=== PATIENT | male | born 1965 | race Caucasian/White ===

== ENCOUNTER 2024-08-29 12:44 | Inpatient (IN) | payer MEDICAID, SELFPAY ==
[2024-08-29] VITALS (12 sets, daily range): BP systolic 154–197; BP diastolic 69–112; PULSE 54–75; RESP 11–20; TEMP 36.6–36.9; O2SAT 92–99; BMI 16.6; BMI 16.9; BMI 16.0
--- NOTE | 2024-08-29 12:47 | [facility].EDGENADL ---
Discharge Plan Disposition Patient Disposition: Admitted Condition: Fair Clinical Impressions Clinical Impression: Abdominal pain, acute, epigastric, Elevated lipase Leukocytosis Qualifiers: Leukocytosis type: lymphocytosis Qualified Code(s): D72.820 - Lymphocytosis (symptomatic) Discharge ED Provider: Mario Cody General Adult HPI <HARESH Katz - Last Filed: 08/29/24 18:20> General Chief complaint: Abdominal Pain Stated complaint: ABD Pain Time Seen by Provider: 08/29/24 12:47 History of Present Illness HPI narrative: Patient presents for evaluation of acute abdominal pain. Patient reports that he has had acute abdominal pain for 24 hours. He has had nausea and vomiting but no diarrhea. Patient also gives a history of being diagnosed with stomach cancer approximately a year and a half ago but has not had it fully worked up or had treatment. Patient is homeless. Patient states that he occasionally uses heroin to control his abdominal pain. He denies any fever chills hemoptysis hematochezia melena hematemesis hematuria. He does not drink alcohol denies any other illicit or street drug use. Related Data Previous Rx's ?Medication ?Instructions ?Recorded linaclotide 145 mcg capsule 145 mcg PO DAILY #14 caps 09/02/24 (Linzess) lisinopril 5 mg tablet 5 mg PO DAILY 30 days #30 tabs 09/02/24 oxycodone-acetaminophen 5 mg-325 1 tab PO Q6H PRN pain 3 days #12 09/02/24 mg tablet (Percocet) tabs pantoprazole 40 mg tablet,delayed 40 mg PO DAILY #30 tabs 09/02/24 release (Protonix) polyethylene glycol 3350 17 gram 17 g PO DAILY 30 days #30 ea 09/02/24 oral powder packet (HealthyLax) sucralfate 1 gram tablet (Carafate) 1 g PO BID #30 tabs 09/02/24 Allergies Allergy/AdvReac Type Severity Reaction Status Date / Time buspirone (From BuSpar) Allergy Rash Verified 08/29/24 13:14 hydrocodone Allergy Vomiting Verified 08/29/24 13:14 PFSH <HARESH Katz - Last Filed: 08/29/24 18:20> PFS Disclaimer: The information contained in this section may have been updated after the patient was seen, as this information can be updated by other users. Family History Other No significant family history Social History (Updated 09/02/24 @ 11:48 by Crystal Hughes CRNA) Smoking Status: Never smoker alcohol intake: never substance use type: unknown current occupational status: unemployed Travel in the last 8 weeks: None <HARESH Katz - Last Filed: 08/29/24 18:20> ROS Obtained: Yes Systems reviewed as appropriate & no additional complaints except as documented Physical Exam <HARESH Katz - Last Filed: 08/29/24 18:20> General General appearance: alert and in no apparent distress Respiratory Respiratory exam: Present normal lung sounds bilaterally Cardiovascular Cardiovascular exam: Present regular rate Neurological Exam Neurological exam: Present alert, oriented X3 and CN II-XII intact Medical Decision Making <HARESH Katz - Last Filed: 08/29/24 18:20> Medical Records Medical records reviewed: Yes I reviewed the patient's medical records. Screening: Per USPSTF and CDC recommendations, given the prevalence of disease in our region, it is our hospital?s policy to screen for HIV and viral Hepatitis for all patients aged 18 and over and those with ongoing risk factors. Yves Inquiry Pt receiving controlled substance: No Vital Signs: 08/29/24 13:02 08/29/24 13:03 08/29/24 13:07 Temperature 97.9 F Temperature Source Oral Pulse Rate 72 Pulse Rate [Left Radial] 75 Pulse Rate [Right Radial] 72 Respiratory Rate 16 11 L 20 Blood Pressure 169/108 H Blood Pressure [Right Arm] 197/112 H 169/108 H Blood Pressure Mean 128 Blood Pressure Mean [Right Arm] 140 128 Blood Pressure Source [Right Arm] Automatic Cuff 02 Sat by Pulse Oximetry 99 99 92 L Oxygen Delivery Method Room Air Room Air 08/29/24 14:00 08/29/24 14:33 08/29/24 15:00 Temperature Temperature Source Pulse Rate 57 L 55 L 58 L Pulse Rate [Left Radial] Pulse Rate [Right Radial] Respiratory Rate 12 13 18 Blood Pressure 186/93 H 185/93 H 178/93 H Blood Pressure [Right Arm] Blood Pressure Mean 124 123 121 Blood Pressure Mean [Right Arm] Blood Pressure Source [Right Arm] 02 Sat by Pulse Oximetry 99 99 97 Oxygen Delivery Method 08/29/24 15:30 08/29/24 16:41 Temperature 98.2 F Temperature Source Pulse Rate 58 L 60 Pulse Rate [Left Radial] Pulse Rate [Right Radial] Respiratory Rate 13 20 Blood Pressure 171/100 H 155/78 H Blood Pressure [Right Arm] Blood Pressure Mean 123 Blood Pressure Mean [Right Arm] Blood Pressure Source [Right Arm] 02 Sat by Pulse Oximetry 99 Oxygen Delivery Method Room Air Lab Data Lab results reviewed: Yes I reviewed the patient's lab results. Lab Results 08/29/24 12:27: WBC 30.6 H*, RBC 5.12, Hgb 14.7, Hct 43.5, MCV 85.0, MCH 28.7, MCHC 33.8, RDW 13.8, Plt Count 233, MPV 10.8 H, Neut % (Auto) 28.6 L, Lymph % (Auto) 67.0 H, [place] % (Auto) 3.4, Eos % (Auto) 0.4, Baso % (Auto) 0.3, Neut # (Auto) 8.8 H, Lymph # (Auto) 20.5 H, [place] # (Auto) 1.1 H, Eos # (Auto) 0.1, Baso # (Auto) 0.1, Total Counted 100, Neutrophils % (Manual) 35 L, Lymphocytes % (Manual) 61 H, Monocytes % (Manual) 4, Platelet Estimate Normal, RBC Morphology Normal, PT 10.3, INR 0.91, Sodium 135 L, Potassium 3.9, Chloride 104, Carbon Dioxide 20 L, Anion Gap 14.9, BUN 39 H, Creatinine 1.30 H, Estimated Creat Clear 45, Estimated GFR 56 L, Est GFR ( Amer) 68, Glucose 143 H, Lactate 2.3 H, Calcium 9.2, Magnesium 1.8, Total Bilirubin 1.0, AST 61 H, ALT 43, Alkaline Phosphatase 85, Troponin I 0.01, Total Protein 7.4, Albumin 4.1, Globulin 3.3 H, Albumin/Globulin Ratio 1.2, Lipase 421 H, Procalcitonin 0.179, HCV Ab FAISAL w/Rflx PCR Qn Reactive, HIV Ag/Ab Combo Qual Negative 08/29/24 14:37: SARS-CoV-2 (PCR) Not detected, Influenza A Untype (PCR) Not detected, Influenza Type B (PCR) Not detected 08/29/24 15:25: Urine Color Yellow, Urine Appearance Clear, Urine pH 7.5, Ur Specific [place] 1.015, Urine Protein Negative, Urine Glucose (UA) 2+, Urine Ketones Negative, Urine Blood Negative, Urine Nitrate Negative, Urine Bilirubin Negative, Urine Urobilinogen 1.0, Ur Leukocyte Esterase Negative, Urine RBC None, Urine WBC None, Ur Squamous Epith Cells None, Urine Bacteria None 09/02/24 06:01 09/02/24 06:01 Orders (Tests/Meds): ED MEDICATIONS Discontinued Medications Generic Name Dose Route Start Last Admin Trade Name Freq PRN Reason Stop Dose Admin Acetaminophen 1,000 mg 08/29/24 12:48 08/29/24 13:01 Acetaminophen 1,000mg/100ml Vial IV 08/29/24 12:49 1,000 mg ONCE ONE Administration Lipase/Protease/Amylase 2 each 09/01/24 11:00 09/02/24 16:37 Lipase/Protease/Amylase 1 Each Capsule.Dr PO 10/01/24 10:59 2 each AC AHSAN Administration Belladonna Alkaloids 60 ml 08/29/24 17:46 08/29/24 18:02 Belladonna Alkaloids 60 Ml Ml PO 08/29/24 17:47 60 ml ONCE ONE Administration Belladonna Alkaloids 60 ml 08/30/24 12:54 08/30/24 13:08 Belladonna Alkaloids 60 Ml Ml PO 08/30/24 12:55 60 ml ONCE ONE Administration Calcium Carbonate 500 mg 08/29/24 17:46 08/30/24 10:27 Calcium Carbonate 500mg Chewtab PO 09/28/24 17:45 500 mg QIDP PRN Administration Heartburn Dicyclomine HCl 20 mg 08/29/24 17:00 08/30/24 12:49 Dicyclomine 10mg Capsule PO 09/28/24 16:59 20 mg QID AHSAN Administration Enoxaparin Sodium 30 mg 09/01/24 09:00 09/02/24 09:08 Enoxaparin 30mg/0.3ml Syringe SUBCUT 10/01/24 08:59 Not Given DAILY AHSAN Hydromorphone HCl 1 mg 08/29/24 13:31 08/29/24 13:57 Hydromorphone 2mg/Ml Syringe IV 08/29/24 13:32 1 mg ONCE ONE Administration Hydromorphone HCl 1 mg 08/29/24 15:24 08/29/24 15:29 Hydromorphone 2mg/Ml Syringe IV 08/29/24 15:25 1 mg ONCE ONE Administration Hydromorphone HCl 0.5 mg 08/30/24 03:19 08/30/24 03:21 Hydromorphone 2mg/Ml Syringe IV 08/30/24 03:20 0.5 mg ONCE ONE Administration Hydromorphone HCl 0.5 mg 08/30/24 22:20 08/30/24 22:25 Hydromorphone 2mg/Ml Syringe IV 08/30/24 22:21 0.5 mg ONCE ONE Administration Hydromorphone HCl 0.5 mg 08/31/24 12:54 09/01/24 10:04 Hydromorphone 2mg/Ml Syringe IV 09/30/24 12:53 0.5 mg Q4HP PRN Administration Moderate Pain (4-6) Hydromorphone HCl 1 mg 08/31/24 12:54 09/02/24 18:34 Hydromorphone 2mg/Ml Syringe IV 09/30/24 12:53 1 mg Q4HP PRN Administration Severe Pain (7-10) Sodium Chloride 1,000 mls @ 999 mls/hr 08/29/24 12:48 08/29/24 13:01 Sod Chlor 0.9% 1000ml Bag IV 08/29/24 13:48 999 mls/hr .Q1H1M ONE Administration Sodium Chloride 2,120 mls @ 1,060 mls/hr 08/29/24 14:39 08/29/24 15:17 Sod Chlor 0.9% 1000ml Bag 30 ml/kg infuse over 2 hr (2120 ml) 08/29/24 16:38 1,060 mls/hr IV Administration .Q2H ONE Vancomycin HCl 1,000 mg/ 250 mls @ 125 mls/hr 08/29/24 14:45 08/29/24 15:27 Sodium Chloride IV 08/29/24 16:44 125 mls/hr ONCE ONE Administration Piperacillin Sod/Tazobactam 50 mls @ 100 mls/hr 08/29/24 15:19 08/29/24 15:20 Sod 3.375 gm/ Sodium Chloride IV 08/29/24 15:48 100 mls/hr ONCE ONE Administration Lactated Ringer's 1,000 mls @ 100 mls/hr 08/29/24 16:30 08/29/24 17:44 Lactated Ringer's 1000 Ml Bag IV 08/30/24 02:29 100 mls/hr .Q10H AHSAN Administration Pantoprazole Sodium 80 mg/ 100 mls @ 100 mls/hr 08/29/24 17:46 08/29/24 18:01 Sodium Chloride IV 08/29/24 18:45 100 mls/hr ONCE ONE Administration Piperacillin Sod/Tazobactam 50 mls @ 100 mls/hr 08/31/24 11:00 09/02/24 16:37 Sod 3.375 gm/ Sodium Chloride IV 09/10/24 10:59 100 mls/hr Q6H AHSAN Administration Lactated Ringer's 1,000 mls @ 75 mls/hr 08/31/24 11:30 09/02/24 16:56 Lactated Ringer's 1000 Ml Bag IV 09/30/24 11:29 Not Given .[id number] AHSAN Lactated Ringer's 1,000 mls @ 500 mls/hr 08/31/24 15:33 08/31/24 15:56 Lactated Ringer's 1000 Ml Bag IV 08/31/24 17:32 500 mls/hr .Q2H ONE Administration Magnesium Sulfate 2 gm in 50 mls @ 50 mls/hr 09/02/24 08:00 09/02/24 13:31 Magnesium Sulfate 2gm/50ml Premix IV 09/02/24 09:59 50 mls/hr Q1H AHSAN Administration Iopamidol 70 ml 08/29/24 13:30 08/29/24 13:31 Iopamidol-370 (76%);100ml Bottle IV 08/29/24 13:31 70 ml ONCE ONE Administration Iopamidol 75 ml 08/29/24 16:49 08/29/24 16:50 Iopamidol-370 (76%);100ml Bottle IV 08/29/24 16:50 75 ml ONCE ONE Administration Iopamidol 80 ml 08/31/24 13:21 08/31/24 13:23 Iopamidol-370 (76%);100ml Bottle IV 08/31/24 13:22 80 ml ONCE ONE Administration Lisinopril 5 mg 08/30/24 09:00 09/02/24 08:34 Lisinopril 5mg Tablet PO 09/29/24 08:59 5 mg DAILY AHSAN Administration Magnesium Hydroxide 30 ml 09/02/24 15:25 09/02/24 16:37 Milk Of Magnesia 30ml Udc PO 09/02/24 15:26 30 ml ONCE ONE Administration Miscellaneous 1 each 08/29/24 14:45 08/29/24 15:19 Vancomycin Consult Request NOTAPPLIC 09/28/24 14:44 1 each CONSULT PHARMACY AHSAN Administration Misoprostol 200 mcg 08/31/24 13:00 09/02/24 18:29 Misoprostol 200 Mcg Tablet PO 09/30/24 12:59 200 mcg Q6H AHSAN Administration Morphine Sulfate 2 mg 08/30/24 12:58 08/31/24 11:31 Morphine 2mg/Ml Syringe IV 09/29/24 12:57 2 mg Q4HP PRN Administration Moderate Pain (4-6) Morphine Sulfate 4 mg 08/30/24 12:58 08/31/24 08:24 Morphine 4mg/Ml Syringe IV 09/29/24 12:57 4 mg Q4HP PRN Administration Severe Pain (7-10) Ondansetron HCl 4 mg 08/29/24 12:48 08/29/24 13:01 Ondansetron 4mg/2ml Vial IV 08/29/24 12:49 4 mg ONCE ONE Administration Ondansetron HCl 4 mg 09/01/24 14:22 09/02/24 16:41 Ondansetron 4mg/2ml Vial IV 10/01/24 14:21 4 mg Q6HP PRN Administration Nausea Pantoprazole Sodium 40 mg 08/29/24 21:00 09/02/24 08:33 Pantoprazole 40mg Vial IV 09/28/24 20:59 40 mg BID AHSAN Administration Pantoprazole Sodium 40 mg 08/29/24 21:57 08/29/24 21:59 Pantoprazole 40mg Tablet PO 08/29/24 21:58 40 mg ONCE ONE Administration Polyethylene Glycol 17 gm 08/31/24 11:15 09/02/24 09:09 Polyethylene Glycol 3350 17 Gm Packet PO 09/30/24 11:14 Not Given DAILY AHSAN Potassium Chloride 40 meq 09/02/24 08:00 09/02/24 12:56 Potassium Chloride 20meq Tab PO 09/02/24 12:01 40 meq Q4H AHSAN Administration Promethazine HCl 25 mg 08/29/24 15:24 08/29/24 15:29 Promethazine Hcl 25mg/Ml 1ml Vial IV 08/29/24 15:25 25 mg ONCE ONE Administration Promethazine HCl 25 mg 09/01/24 17:38 09/01/24 17:45 Promethazine Hcl 25mg/Ml 1ml Vial IV 10/01/24 17:37 25 mg Q6HP PRN Administration Nausea And Vomiting Ropinirole HCl 0.5 mg 08/30/24 00:05 09/01/24 20:02 Ropinirole Hcl 0.25 Mg Tablet PO 09/29/24 00:04 0.5 mg HS AHSAN Administration Sodium Chloride 50 ml 08/29/24 13:30 08/29/24 13:31 0.9 % Sodium Chloride 50 Ml Vial IV 08/29/24 13:31 50 ml ONCE ONE Administration Sodium Chloride 10 ml 08/29/24 13:30 08/29/24 13:31 Sodium Chloride 0.9% 10ml Syr (Rad Only) IV 08/29/24 13:31 10 ml ONCE ONE Administration Sodium Chloride 25 ml 08/29/24 15:24 08/29/24 15:30 Sodium Chloride 0.9% 25ml Bag IV 08/29/24 15:25 25 ml ONCE ONE Administration Sodium Chloride 10 ml 08/29/24 16:49 Sodium Chloride 0.9% 10ml Syr (Rad Only) IV 09/28/24 16:48 NEEDED PRN Maintain IV Site Sodium Chloride 10 ml 08/29/24 17:46 08/31/24 20:24 Sodium Chloride 0.9% 10ml Vial IV 09/28/24 17:45 10 ml NEEDED PRN Administration dilute protonix Sodium Chloride 10 ml 08/31/24 11:17 08/31/24 13:23 Sodium Chloride 0.9% 10ml Flush Syringe IV 09/30/24 11:16 10 ml NEEDED PRN Administration Maintain IV Site Sodium Chloride 50 ml 08/31/24 13:21 08/31/24 13:23 0.9 % Sodium Chloride 50 Ml Vial IV 08/31/24 13:22 50 ml ONCE ONE Administration Sodium Chloride 10 ml 08/31/24 13:21 Sodium Chloride 0.9% 10ml Syr (Rad Only) IV 09/30/24 13:20 NEEDED PRN Maintain IV Site Sodium Chloride 25 ml 09/01/24 17:38 09/01/24 17:45 Sodium Chloride 0.9% 25ml Bag IV 10/01/24 17:37 25 ml NEEDED PRN Administration for Use with IV Promethazine Sucralfate 1 gm 08/31/24 11:00 09/02/24 16:37 Sucralfate 1gm Tablet PO 09/30/24 10:59 1 gm ACHS AHSAN Administration ORDERS Category Date Time Status CT abdomen pelvis w con Stat Cat Scan 08/29/24 12:[address] abdomen wo/w con Stat Cat Scan 08/29/24 16:[address] angio chest PE protocol Stat Cat Scan 08/29/24 12:48 Completed Consult Improvement Coordinator [CONS] Routine Cons 08/29/24 13:14 Active US abdomen limited Stat Exams 08/29/24 15:27 Completed CBC w/Auto Diff [Complete Blood Count Auto Diff] Stat Lab 08/29/24 12:27 Completed CMP [Comprehensive Metabolic Panel] Stat Lab 08/29/24 12:27 Completed Complete Blood Count Auto Diff AMLAB Lab 08/30/24 08:05 Completed Comprehensive Metabolic Panel AMLAB Lab 08/30/24 08:05 Completed HIV Combo Routine Lab 08/29/24 12:27 Completed Hepatitis C Ab Qual. W/ RFX Routine Lab 08/29/24 12:27 Completed INR [Prothrombin Time INR] Stat Lab 08/29/24 12:27 Completed Lactic Acid Stat Lab 08/29/24 12:27 Completed Lipase Stat Lab 08/29/24 12:27 Completed Magnesium AMLAB Lab 08/30/24 08:05 Completed Magnesium Stat Lab 08/29/24 12:27 Completed Peripheral Smear Review Stat Lab 08/29/24 12:27 Completed Procalcitonin Stat Lab 08/29/24 12:27 Completed Rapid PCR Covid and Flu A/B Stat Lab 08/29/24 14:37 Completed Trop I [Troponin I] Stat Lab 08/29/24 12:27 Completed Troponin I Q3H Lab 08/29/24 17:10 Completed Troponin I Q3H Lab 08/29/24 19:42 Completed UA [Urinalysis and Microscopic] Stat Lab 08/29/24 15:25 Completed Blood Culture Stat Micro 08/29/24 13:00 Results Tissue Perfus/Sepsis Re-Eval Sepsis Re-Evaluation Performed: Yes Date Performed: 08/29/24 Time Performed: 14:34 HEART Score History (anamnesis): Slightly suspicious ECG: Normal Age: 45-65 years Risk factors: 1-2 risk factors Troponin: </= normal limit HEART Score: 2 Medical Decision Narrative: In summary patient is a 59-year-old male who presents to the emergency department for evaluation of abdominal pain. Patient is hypertensive on arrival with a blood pressure 197/112 heart rate 72 with normal sinus rhythm on the bedside monitor breathing 16 times a minute satting at 99% on room air upon arrival, afebrile at 97.9. Physical exam reveals a much older than stated age appearing 59-year-old gentleman who appears to be cachectic but is in no acute distress. Breath sounds clear and equal bilaterally to the bases without adventitious sounds, patient is tender to palpation in the epigastrium focally but diffusely in his abdomen but his abdomen soft no palpable masses no rebound or guarding no rigidity normal bowel sounds. Patient has skin tenting. Differential diagnosis includes pancreatitis versus gastroenteritis versus ulcer versus neoplasm versus constipation versus obstipation etc. Initial workup will be conducted with hematologic labs blood cultures twelve-lead EKG CT scan PE protocol CT scan abdomen pelvis urinalysis. Initial interventions include crystalloid bolus Toradol Tylenol Zofran. Initial workup reviewed by me and his white count is 30.6 hemoglobin hematocrit are normal platelets are 233 differential shows an absolute neutrophil count of 8.8 and lymphocyte count of 20.5, INR 0.91 CMP significant for sodium 135 CO2 of 20 BUN of 39 creatinine 1.3 GFR 56 glucose 143 lactate 2.3 magnesium 1.8 bilirubin 1 AST of 61 ALT of 43 alk phos 85 initial troponin is less than 0.001 lipase is 421 and procalcitonin is 0.19. My informal interpretation of his CT imaging reveals no acute intra-abdominal or intrathoracic processes however patient has no intra-abdominal fat thus makes it difficult for inflammatory evaluation while I am concerned that his leukocytosis is indicative of lymphoma and over bedside caution we will treat his sepsis initially with broad-spectrum antibiotics. I have given a sepsis bolus and liberal analgesia for the pancreatitis. Upon repeat evaluation patient is still continuing to have pain requiring multiple doses of Dilaudid and antinausea medications. Given this had interactive discussion with hospital medicine regarding patient MEJIA presentation and management and he will be admitted for further evaluation and care. <Mario Cody MD - Last Filed: 09/03/24 06:58> Vital Signs: 08/29/24 13:02 08/29/24 13:03 08/29/24 13:07 Temperature 97.9 F Temperature Source Oral Pulse Rate 72 Pulse Rate [Left Radial] 75 Pulse Rate [Right Radial] 72 Respiratory Rate 16 11 L 20 Blood Pressure 169/108 H Blood Pressure [Right Arm] 197/112 H 169/108 H Blood Pressure Mean 128 Blood Pressure Mean [Right Arm] 140 128 Blood Pressure Source [Right Arm] Automatic Cuff 02 Sat by Pulse Oximetry 99 99 92 L Oxygen Delivery Method Room Air Room Air 08/29/24 14:00 08/29/24 14:33 08/29/24 15:00 Temperature Temperature Source Pulse Rate 57 L 55 L 58 L Pulse Rate [Left Radial] Pulse Rate [Right Radial] Respiratory Rate 12 13 18 Blood Pressure 186/93 H 185/93 H 178/93 H Blood Pressure [Right Arm] Blood Pressure Mean 124 123 121 Blood Pressure Mean [Right Arm] Blood Pressure Source [Right Arm] 02 Sat by Pulse Oximetry 99 99 97 Oxygen Delivery Method 08/29/24 15:30 08/29/24 16:41 Temperature 98.2 F Temperature Source Pulse Rate 58 L 60 Pulse Rate [Left Radial] Pulse Rate [Right Radial] Respiratory Rate 13 20 Blood Pressure 171/100 H 155/78 H Blood Pressure [Right Arm] Blood Pressure Mean 123 Blood Pressure Mean [Right Arm] Blood Pressure Source [Right Arm] 02 Sat by Pulse Oximetry 99 Oxygen Delivery Method Room Air Lab Data Lab Results 08/29/24 12:27: WBC 30.6 H*, RBC 5.12, Hgb 14.7, Hct 43.5, MCV 85.0, MCH 28.7, MCHC 33.8, RDW 13.8, Plt Count 233, MPV 10.8 H, Neut % (Auto) 28.6 L, Lymph % (Auto) 67.0 H, [place] % (Auto) 3.4, Eos % (Auto) 0.4, Baso % (Auto) 0.3, Neut # (Auto) 8.8 H, Lymph # (Auto) 20.5 H, [place] # (Auto) 1.1 H, Eos # (Auto) 0.1, Baso # (Auto) 0.1, Total Counted 100, Neutrophils % (Manual) 35 L, Lymphocytes % (Manual) 61 H, Monocytes % (Manual) 4, Platelet Estimate Normal, RBC Morphology Normal, PT 10.3, INR 0.91, Sodium 135 L, Potassium 3.9, Chloride 104, Carbon Dioxide 20 L, Anion Gap 14.9, BUN 39 H, Creatinine 1.30 H, Estimated Creat Clear 45, Estimated GFR 56 L, Est GFR ( Amer) 68, Glucose 143 H, Lactate 2.3 H, Calcium 9.2, Magnesium 1.8, Total Bilirubin 1.0, AST 61 H, ALT 43, Alkaline Phosphatase 85, Troponin I 0.01, Total Protein 7.4, Albumin 4.1, Globulin 3.3 H, Albumin/Globulin Ratio 1.2, Lipase 421 H, Procalcitonin 0.179, HCV Ab FAISAL w/Rflx PCR Qn Reactive, HIV Ag/Ab Combo Qual Negative 08/29/24 14:37: SARS-CoV-2 (PCR) Not detected, Influenza A Untype (PCR) Not detected, Influenza Type B (PCR) Not detected 08/29/24 15:25: Urine Color Yellow, Urine Appearance Clear, Urine pH 7.5, Ur Specific [place] 1.015, Urine Protein Negative, Urine Glucose (UA) 2+, Urine Ketones Negative, Urine Blood Negative, Urine Nitrate Negative, Urine Bilirubin Negative, Urine Urobilinogen 1.0, Ur Leukocyte Esterase Negative, Urine RBC None, Urine WBC None, Ur Squamous Epith Cells None, Urine Bacteria None Orders (Tests/Meds): ED MEDICATIONS Discontinued Medications Generic Name Dose Route Start Last Admin Trade Name Freq PRN Reason Stop Dose Admin Acetaminophen 1,000 mg 08/29/24 12:48 08/29/24 13:01 Acetaminophen 1,000mg/100ml Vial IV 08/29/24 12:49 1,000 mg ONCE ONE Administration Lipase/Protease/Amylase 2 each 09/01/24 11:00 09/02/24 16:37 Lipase/Protease/Amylase 1 Each Capsule.Dr MATTA 10/01/24 10:59 2 each AC AHSAN Administration Belladonna Alkaloids 60 ml 08/29/24 17:46 08/29/24 18:02 Belladonna Alkaloids 60 Ml Ml PO 08/29/24 17:47 60 ml ONCE ONE Administration Belladonna Alkaloids 60 ml 08/30/24 12:54 08/30/24 13:08 Belladonna Alkaloids 60 Ml Ml PO 08/30/24 12:55 60 ml ONCE ONE Administration Calcium Carbonate 500 mg 08/29/24 17:46 08/30/24 10:27 Calcium Carbonate 500mg Chewtab PO 09/28/24 17:45 500 mg QIDP PRN Administration Heartburn Dicyclomine HCl 20 mg 08/29/24 17:00 08/30/24 12:49 Dicyclomine 10mg Capsule PO 09/28/24 16:59 20 mg QID AHSAN Administration Enoxaparin Sodium 30 mg 09/01/24 09:00 09/02/24 09:08 Enoxaparin 30mg/0.3ml Syringe SUBCUT 10/01/24 08:59 Not Given DAILY AHSAN Hydromorphone HCl 1 mg 08/29/24 13:31 08/29/24 13:57 Hydromorphone 2mg/Ml Syringe IV 08/29/24 13:32 1 mg ONCE ONE Administration Hydromorphone HCl 1 mg 08/29/24 15:24 08/29/24 15:29 Hydromorphone 2mg/Ml Syringe IV 08/29/24 15:25 1 mg ONCE ONE Administration Hydromorphone HCl 0.5 mg 08/30/24 03:19 08/30/24 03:21 Hydromorphone 2mg/Ml Syringe IV 08/30/24 03:20 0.5 mg ONCE ONE Administration Hydromorphone HCl 0.5 mg 08/30/24 22:20 08/30/24 22:25 Hydromorphone 2mg/Ml Syringe IV 08/30/24 22:21 0.5 mg ONCE ONE Administration Hydromorphone HCl 0.5 mg 08/31/24 12:54 09/01/24 10:04 Hydromorphone 2mg/Ml Syringe IV 09/30/24 12:53 0.5 mg Q4HP PRN Administration Moderate Pain (4-6) Hydromorphone HCl 1 mg 08/31/24 12:54 09/02/24 18:34 Hydromorphone 2mg/Ml Syringe IV 09/30/24 12:53 1 mg Q4HP PRN Administration Severe Pain (7-10) Sodium Chloride 1,000 mls @ 999 mls/hr 08/29/24 12:48 08/29/24 13:01 Sod Chlor 0.9% 1000ml Bag IV 08/29/24 13:48 999 mls/hr .Q1H1M ONE Administration Sodium Chloride 2,120 mls @ 1,060 mls/hr 08/29/24 14:39 08/29/24 15:17 Sod Chlor 0.9% 1000ml Bag 30 ml/kg infuse over 2 hr (2120 ml) 08/29/24 16:38 1,060 mls/hr IV Administration .Q2H ONE Vancomycin HCl 1,000 mg/ 250 mls @ 125 mls/hr 08/29/24 14:45 08/29/24 15:27 Sodium Chloride IV 08/29/24 16:44 125 mls/hr ONCE ONE Administration Piperacillin Sod/Tazobactam 50 mls @ 100 mls/hr 08/29/24 15:19 08/29/24 15:20 Sod 3.375 gm/ Sodium Chloride IV 08/29/24 15:48 100 mls/hr ONCE ONE Administration Lactated Ringer's 1,000 mls @ 100 mls/hr 08/29/24 16:30 08/29/24 17:44 Lactated Ringer's 1000 Ml Bag IV 08/30/24 02:29 100 mls/hr .Q10H AHSAN Administration Pantoprazole Sodium 80 mg/ 100 mls @ 100 mls/hr 08/29/24 17:46 08/29/24 18:01 Sodium Chloride IV 08/29/24 18:45 100 mls/hr ONCE ONE Administration Piperacillin Sod/Tazobactam 50 mls @ 100 mls/hr 08/31/24 11:00 09/02/24 16:37 Sod 3.375 gm/ Sodium Chloride IV 09/10/24 10:59 100 mls/hr Q6H AHSAN Administration Lactated Ringer's 1,000 mls @ 75 mls/hr 08/31/24 11:30 09/02/24 16:56 Lactated Ringer's 1000 Ml Bag IV 09/30/24 11:29 Not Given .[id number] AHSAN Lactated Ringer's 1,000 mls @ 500 mls/hr 08/31/24 15:33 08/31/24 15:56 Lactated Ringer's 1000 Ml Bag IV 08/31/24 17:32 500 mls/hr .Q2H ONE Administration Magnesium Sulfate 2 gm in 50 mls @ 50 mls/hr 09/02/24 08:00 09/02/24 13:31 Magnesium Sulfate 2gm/50ml Premix IV 09/02/24 09:59 50 mls/hr Q1H AHSAN Administration Iopamidol 70 ml 08/29/24 13:30 08/29/24 13:31 Iopamidol-370 (76%);100ml Bottle IV 08/29/24 13:31 70 ml ONCE ONE Administration Iopamidol 75 ml 08/29/24 16:49 08/29/24 16:50 Iopamidol-370 (76%);100ml Bottle IV 08/29/24 16:50 75 ml ONCE ONE Administration Iopamidol 80 ml 08/31/24 13:21 08/31/24 13:23 Iopamidol-370 (76%);100ml Bottle IV 08/31/24 13:22 80 ml ONCE ONE Administration Lisinopril 5 mg 08/30/24 09:00 09/02/24 08:34 Lisinopril 5mg Tablet PO 09/29/24 08:59 5 mg DAILY AHSAN Administration Magnesium Hydroxide 30 ml 09/02/24 15:25 09/02/24 16:37 Milk Of Magnesia 30ml Udc PO 09/02/24 15:26 30 ml ONCE ONE Administration Miscellaneous 1 each 08/29/24 14:45 08/29/24 15:19 Vancomycin Consult Request NOTAPPLIC 09/28/24 14:44 1 each CONSULT PHARMACY AHSAN Administration Misoprostol 200 mcg 08/31/24 13:00 09/02/24 18:29 Misoprostol 200 Mcg Tablet PO 09/30/24 12:59 200 mcg Q6H AHSAN Administration Morphine Sulfate 2 mg 08/30/24 12:58 08/31/24 11:31 Morphine 2mg/Ml Syringe IV 09/29/24 12:57 2 mg Q4HP PRN Administration Moderate Pain (4-6) Morphine Sulfate 4 mg 08/30/24 12:58 08/31/24 08:24 Morphine 4mg/Ml Syringe IV 09/29/24 12:57 4 mg Q4HP PRN Administration Severe Pain (7-10) Ondansetron HCl 4 mg 08/29/24 12:48 08/29/24 13:01 Ondansetron 4mg/2ml Vial IV 08/29/24 12:49 4 mg ONCE ONE Administration Ondansetron HCl 4 mg 09/01/24 14:22 09/02/24 16:41 Ondansetron 4mg/2ml Vial IV 10/01/24 14:21 4 mg Q6HP PRN Administration Nausea Pantoprazole Sodium 40 mg 08/29/24 21:00 09/02/24 08:33 Pantoprazole 40mg Vial IV 09/28/24 20:59 40 mg BID AHSAN Administration Pantoprazole Sodium 40 mg 08/29/24 21:57 08/29/24 21:59 Pantoprazole 40mg Tablet PO 08/29/24 21:58 40 mg ONCE ONE Administration Polyethylene Glycol 17 gm 08/31/24 11:15 09/02/24 09:09 Polyethylene Glycol 3350 17 Gm Packet PO 09/30/24 11:14 Not Given DAILY AHSAN Potassium Chloride 40 meq 09/02/24 08:00 09/02/24 12:56 Potassium Chloride 20meq Tab PO 09/02/24 12:01 40 meq Q4H AHSAN Administration Promethazine HCl 25 mg 08/29/24 15:24 08/29/24 15:29 Promethazine Hcl 25mg/Ml 1ml Vial IV 08/29/24 15:25 25 mg ONCE ONE Administration Promethazine HCl 25 mg 09/01/24 17:38 09/01/24 17:45 Promethazine Hcl 25mg/Ml 1ml Vial IV 10/01/24 17:37 25 mg Q6HP PRN Administration Nausea And Vomiting Ropinirole HCl 0.5 mg 08/30/24 00:05 09/01/24 20:02 Ropinirole Hcl 0.25 Mg Tablet PO 09/29/24 00:04 0.5 mg HS AHSAN Administration Sodium Chloride 50 ml 08/29/24 13:30 08/29/24 13:31 0.9 % Sodium Chloride 50 Ml Vial IV 08/29/24 13:31 50 ml ONCE ONE Administration Sodium Chloride 10 ml 08/29/24 13:30 08/29/24 13:31 Sodium Chloride 0.9% 10ml Syr (Rad Only) IV 08/29/24 13:31 10 ml ONCE ONE Administration Sodium Chloride 25 ml 08/29/24 15:24 08/29/24 15:30 Sodium Chloride 0.9% 25ml Bag IV 08/29/24 15:25 25 ml ONCE ONE Administration Sodium Chloride 10 ml 08/29/24 16:49 Sodium Chloride 0.9% 10ml Syr (Rad Only) IV 09/28/24 16:48 NEEDED PRN Maintain IV Site Sodium Chloride 10 ml 08/29/24 17:46 08/31/24 20:24 Sodium Chloride 0.9% 10ml Vial IV 09/28/24 17:45 10 ml NEEDED PRN Administration dilute protonix Sodium Chloride 10 ml 08/31/24 11:17 08/31/24 13:23 Sodium Chloride 0.9% 10ml Flush Syringe IV 09/30/24 11:16 10 ml NEEDED PRN Administration Maintain IV Site Sodium Chloride 50 ml 08/31/24 13:21 08/31/24 13:23 0.9 % Sodium Chloride 50 Ml Vial IV 08/31/24 13:22 50 ml ONCE ONE Administration Sodium Chloride 10 ml 08/31/24 13:21 Sodium Chloride 0.9% 10ml Syr (Rad Only) IV 09/30/24 13:20 NEEDED PRN Maintain IV Site Sodium Chloride 25 ml 09/01/24 17:38 09/01/24 17:45 Sodium Chloride 0.9% 25ml Bag IV 10/01/24 17:37 25 ml NEEDED PRN Administration for Use with IV Promethazine Sucralfate 1 gm 08/31/24 11:00 09/02/24 16:37 Sucralfate 1gm Tablet PO 09/30/24 10:59 1 gm ACHS AHSAN Administration ORDERS Category Date Time Status CT abdomen pelvis w con Stat Cat Scan 08/29/24 12:[address] abdomen wo/w con Stat Cat Scan 08/29/24 16:[address] angio chest PE protocol Stat Cat Scan 08/29/24 12:48 Completed Consult Improvement Coordinator [CONS] Routine Cons 08/29/24 13:14 Active US abdomen limited Stat Exams 08/29/24 15:27 Completed CBC w/Auto Diff [Complete Blood Count Auto Diff] Stat Lab 08/29/24 12:27 Completed CMP [Comprehensive Metabolic Panel] Stat Lab 08/29/24 12:27 Completed Complete Blood Count Auto Diff AMLAB Lab 08/30/24 08:05 Completed Comprehensive Metabolic Panel AMLAB Lab 08/30/24 08:05 Completed HIV Combo Routine Lab 08/29/24 12:27 Completed Hepatitis C Ab Qual. W/ RFX Routine Lab 08/29/24 12:27 Completed INR [Prothrombin Time INR] Stat Lab 08/29/24 12:27 Completed Lactic Acid Stat Lab 08/29/24 12:27 Completed Lipase Stat Lab 08/29/24 12:27 Completed Magnesium AMLAB Lab 08/30/24 08:05 Completed Magnesium Stat Lab 08/29/24 12:27 Completed Peripheral Smear Review Stat Lab 08/29/24 12:27 Completed Procalcitonin Stat Lab 08/29/24 12:27 Completed Rapid PCR Covid and Flu A/B Stat Lab 08/29/24 14:37 Completed Trop I [Troponin I] Stat Lab 08/29/24 12:27 Completed Troponin I Q3H Lab 08/29/24 17:10 Completed Troponin I Q3H Lab 08/29/24 19:42 Completed UA [Urinalysis and Microscopic] Stat Lab 08/29/24 15:25 Completed Blood Culture Stat Micro 08/29/24 13:00 Results ECG Data Tracing #1: I reviewed this ECG and interpreted as documented below: (Sinus rhythm 70 bpm with SD 119, QRS 71, QTc 438. Right atrial enlargement, normal axis and no acute ischemic change) HEART Score HEART Score: 2 Medical Decision Narrative: In summary patient is a 59-year-old male who presents to the emergency department for evaluation of abdominal pain. Patient is hypertensive on arrival with a blood pressure 197/112 heart rate 72 with normal sinus rhythm on the bedside monitor breathing 16 times a minute satting at 99% on room air upon arrival, afebrile at 97.9. Physical exam reveals a much older than stated age appearing 59-year-old gentleman who appears to be cachectic but is in no acute distress. Breath sounds clear and equal bilaterally to the bases without adventitious sounds, patient is tender to palpation in the epigastrium focally but diffusely in his abdomen but his abdomen soft no palpable masses no rebound or guarding no rigidity normal bowel sounds. Patient has skin tenting. Differential diagnosis includes pancreatitis versus gastroenteritis versus ulcer versus neoplasm versus constipation versus obstipation etc. Initial workup will be conducted with hematologic labs blood cultures twelve-lead EKG CT scan PE protocol CT scan abdomen pelvis urinalysis. Initial interventions include crystalloid bolus Toradol Tylenol Zofran. Initial workup reviewed by me and his white count is 30.6 hemoglobin hematocrit are normal platelets are 233 differential shows an absolute neutrophil count of 8.8 and lymphocyte count of 20.5, INR 0.91 CMP significant for sodium 135 CO2 of 20 BUN of 39 creatinine 1.3 GFR 56 glucose 143 lactate 2.3 magnesium 1.8 bilirubin 1 AST of 61 ALT of 43 alk phos 85 initial troponin is less than 0.001 lipase is 421 and procalcitonin is 0.19. My informal interpretation of his CT imaging reveals no acute intra-abdominal or intrathoracic processes however patient has no intra-abdominal fat thus makes it difficult for inflammatory evaluation while I am concerned that his leukocytosis is indicative of lymphoma and over bedside caution we will treat his sepsis initially with broad-spectrum antibiotics. I have given a sepsis bolus and liberal analgesia for the pancreatitis. Upon repeat evaluation patient is still continuing to have pain requiring multiple doses of Dilaudid and antinausea medications. Given this had interactive discussion with hospital medicine regarding patient MEJIA presentation and management and he will be admitted for further evaluation and care. I was consulted by the BETTY, and we discussed the complexity of the problems being addressed. I approved the treatment and management plan for this patient's care in the Emergency Department, thus performing a substantive portion of the medical decision making. Mario Cody MD Critical Care <HARESH Katz - Last Filed: 08/29/24 18:20> Critical Care Time Critical Care Time: Yes Attestation: On 08/29/24, the high probability of a clinically significant, sudden or life threatening deterioration of the following system(s) required my full and direct attention, intervention and personal management. The time I documented below is in addition to time spent performing reported procedures but includes the following listed in this critical care notation. Total Time Total Critical Care Time: 35
--- NOTE | 2024-08-29 12:48 | ECG_ITS ---
APPROVED REPORT Exam: Resting ECG HR:70 bpm ECG Measurements Heart Rate 70 AXES IA 119 P 87 QRSd 71 QRS 80 QT 418 T 69 QTc 438 Conclusion SINUS RHYTHM WITH SINUS ARRHYTHMIA WITH SHORT IA INTERVAL RIGHT ATRIAL ENLARGEMENT [0.3mV P-WAVE] POSSIBLE LEFT ATRIAL ENLARGEMENT [-0.1mV P-WAVE IN V1/V2] ABNORMAL ECG INTERPRETATION BASED ON A DEFAULT AGE OF 40 YEARS Electronically signed by : JAELYN BARNETT, 09/02/2024 22:26:05
--- NOTE | 2024-08-29 12:48 | CT_ITS ---
FINAL REPORT TECHNIQUE: After the administration of oral and intravenous contrast, axial images were obtained through the abdomen and pelvis by computed tomography. The study was performed with techniques to keep radiation dose as low as reasonably achievable, (ALARA). Individual dose reduction techniques using automated exposure control or adjustment of mA and/or kV according to the patient's size were employed. CLINICAL HISTORY: Acute epigastric abd pain, H/O ABD cancer FINDINGS: Abdomen: A relative absence of intra-abdominal fat limits diagnostic sensitivity. There is moderate fatty infiltration of the liver. The gallbladder is contracted. There is an enhancing wall to the contracted gallbladder.. The spleen, pancreas and adrenals appear unremarkable. There is a complex abnormality in the periphery of the right kidney measuring 12 mm. This is best seen on image 36 of series 7 and is indeterminate. The left kidney is unremarkable. The aorta is normal in caliber. There is no free fluid or adenopathy. Pelvis: The appendix is not identified. The urinary bladder is normal in size and configuration. There is no adenopathy. There is a trace amount of free fluid. IMPRESSION: A lack of intra-abdominal fat decreases sensitivity. Moderate fatty liver. Indeterminate, complex abnormality in the periphery of the right kidney. Recommend pre and postcontrast CT abdomen and pelvis to better characterize. Reviewed, Interpreted and Dictated by Jack Melendez MD Transcribed by Ramona Sheridan Authenticated and [facility]
--- NOTE | 2024-08-29 12:48 | CT_ITS ---
FINAL REPORT TECHNIQUE: The patient was injected with IV contrast. Axial images were obtained through the chest in a PE protocol. 3-D reconstruction images were also performed. Individualized dose reduction techniques using automated exposure control or adjustment of the MA and/or KV according to patient's size were employed. CLINICAL HISTORY: Acute epigastric abd pain, H/O ABD cancer FINDINGS: Mediastinal vasculature is adequately opacified. No pulmonary artery filling defects are identified to suggest PE. There is no aortic dissection. There is no axillary adenopathy. There is no hilar or mediastinal adenopathy. The heart size is normal. There is no pericardial or pleural effusion. No suspicious infiltrate or nodule is identified. There is moderate centrilobular emphysema. IMPRESSION: No pulmonary embolus or dissection. Moderate centrilobular emphysema. Reviewed, Interpreted and Dictated by Jack Melendez MD Transcribed by Ramona Sheridan Authenticated and [facility]
[2024-08-29] MEDS: ONDANSETRON 4MG/2ML VIAL 4 MG IV (13:01)
[2024-08-29] MEDS: 0.9 % SODIUM CHLORIDE 1000ML 1,000 ML 999 ML IV (13:01)
[2024-08-29] MEDS: ACETAMINOPHEN 1,000MG/100ML VIAL 1000 MG IV (13:01)
[2024-08-29 13:13] LABS: Basophils # 0.1 K/mm3 (0-0.2); Basophils % 0.3 % (0.1-2.0); Chloride 104 mmol/L (98-107); Eosinophils # 0.1 Kmm3 (0.0-0.4); Eosinophils % 0.4 % (0.1-12.0); Hematocrit 43.5 % (42.0-52.0); Hemoglobin 14.7 g/dL (14.1-18.0); Lymphocytes # 20.5 K/mm3 (0.7-4.5); Mean Corpuscular HGB Conc 33.8 g/dL (31.8-35.4); Mean Corpuscular Hemoglobin 28.7 pg (27.0-31.2); Mean Platelet Volume 10.8 fl (7.4-10.4); Monocytes # 1.1 K/mm3 (0.1-1.0); Monocytes % 3.4 % (1.7-9.3); Neutrophils # 8.8 K/mm3 (1.8-7.8); Neutrophils % 28.6 % (37.0-80.0); Nucleated Red Blood Cells # 0 10^3/uL; Nucleated Red Blood Cells % 0 %; Platelet Count 233 K/mm3 (142-424); Potassium 3.9 mmoL/L (3.5-5.1); Red Blood Count 5.12 M/mm3 (4.60-6.20); Red Cell Distribution Width 13.8 % (11.5-17.5); Red Cell Distribution Width-SD 42.6 fL; Sodium 135 mmol/L (136-145)
[2024-08-29 13:15] LABS: Blood Urea Nitrogen 39 mg/dl (9-20); Creatinine Clearance Estimated 45 mL/min (50-200); Estimated Glomerular Filt Rate 56 ml/min (>60); GFR (African American) 68 ML/MIN (>60)
[2024-08-29 13:16] LABS: Alanine Aminotransferase 43 U/L (12-78); Alkaline Phosphatase 85 U/L (38-126); Anion Gap 14.9 mEq/L (5-15); Aspartate Amino Transferase 61 U/L (17-59); Calcium 9.2 mg/dl (8.4-10.2); Carbon Dioxide 20 mmol/L (22.0-30.0); Glucose 143 mg/dl (74-100); Lipase 421 U/L (23-300); Magnesium 1.8 mg/dl (1.6-2.3); Total Protein,Serum 7.4 g/dl (6.3-8.2)
[2024-08-29 13:27] LABS: Lactic Acid 2.3 mmol/L (0.7-2.1)
[2024-08-29 13:30] LABS: Troponin I 0.01 ng/ml (0.00-0.034)
[2024-08-29 13:31] LABS: White Blood Count 30.6 K/mm3 (4.8-10.8)
[2024-08-29] MEDS: 0.9 % SODIUM CHLORIDE 50 ML VIAL IV (13:31)
[2024-08-29] MEDS: SODIUM CHLORIDE 0.9% 10ML SYR (RAD ONLY) 10 ML IV (13:31)
[2024-08-29] MEDS: IOPAMIDOL-370 (76%);100ML BOTTLE 70 ML IV (13:31)
[2024-08-29 13:32] LABS: MANUAL DIFFERENTIAL MANUAL DIFFERENTIAL (MANUAL DIFF)
[2024-08-29 13:33] LABS: INR 0.91 (0.9-1.1); Prothrombin Time 10.3 seconds (10.1-12.5)
[2024-08-29 13:57] LABS: Lymphocytes % 61 % (10-50); Monocytes % 4 % (2-9); Neutrophils % 35 % (42-76); Platelet Estimate Normal; RBC Morphology Normal; Total Cells Counted 100
[2024-08-29] MEDS: HYDROMORPHONE 2MG/ML SYRINGE 1 MG IV ×2 (13:57→15:29)
[2024-08-29 13:58] LABS: Procalcitonin 0.179 ng/mL (0.0-2.0)
[2024-08-29 14:40] LABS: Coronavirus 19, PCR Not Detected (NotDetected); Influenza A, PCR Not Detected (NotDetected); Influenza B, PCR Not Detected (NotDetected)
[2024-08-29 14:48] LABS: Albumin Level 4.1 g/dl (3.5-5.0); Albumin/Globulin Ratio 1.2 (1.1-1.8); Globulin 3.3 g/dL (1.3-3.2)
[2024-08-29] MEDS: 0.9 % SODIUM CHLORIDE 1000ML 2,120 ML 1060 ML IV (15:17)
[2024-08-29] MEDS: VANCOMYCIN CONSULT REQUEST 1 EACH NOTAPPLIC (15:19)
[2024-08-29] MEDS: PIPERACILLIN/TAZO 3.375 GM in 0.9 % SODIUM CHLORIDE 50 ML IV (15:20)
[2024-08-29] MEDS: VANCOMYCIN HCL 1,000 MG in 0.9 % SODIUM CHLORIDE 250 ML 125 MG IV (15:27)
--- NOTE | 2024-08-29 15:27 | US_ITS ---
FINAL REPORT CLINICAL HISTORY: Acute pancreatitis COMPARISON: CT abdomen and pelvis from same day FINDINGS: ULTRASOUND RIGHT UPPER QUADRANT Sonographic imaging of the right upper quadrant was obtained. The pancreas is partially obscured. The liver is unremarkable. There is no evidence of gallstones. The gallbladder is contracted. There is no biliary ductal dilatation. The common duct is normal at 4 mm. Limited images of the right kidney demonstrate a 1.4 cm hypoechoic focus in the periphery of the mid right kidney. This does not appear to represent a simple cyst and could be a complex cyst or solid mass. This was seen on CT earlier today. IMPRESSION: Hypoechoic focus in the periphery of the mid right kidney: This is not a simple cyst and could be a complex cyst or solid mass. Renal mass protocol CT is recommended. Reviewed, Interpreted and Dictated by Jack Melendez MD Transcribed by Ramona Sheridan Authenticated and [facility]
[2024-08-29] MEDS: PROMETHAZINE HCL 25MG/ML 1ML VIAL 25 MG IV (15:29)
[2024-08-29] MEDS: SODIUM CHLORIDE 0.9% 25ML BAG 25 ML IV (15:30)
[2024-08-29 15:32] LABS: Microscopic, Urine URINE MICROSCOPIC (MICROSCOPIC)
[2024-08-29 15:33] LABS: Appearance,Urine CLEAR (Clear); Bilirubin,Urine Negative (Negative); Blood, Urine Negative (Negative); Color,Urine YELLOW (Yellow); Glucose,Urine (UA) 2+ (Negative); Ketones,Urine Negative (Negative); Leukocyte Esterase,Urine Negative (Negative); Nitrate,Urine Negative (Negative); PH,Urine 7.5 (5.0-8.5); Protein,Urine Negative (Negative); Specific Gravity, Urine 1.015 (1.005-1.030)
--- NOTE | 2024-08-29 16:16 | CT_ITS ---
PROCEDURE INFORMATION: Exam: CT Abdomen Without And With Contrast Exam date and time: 08/29/2024 4:48 PM Age: 59 years old Clinical indication: Abdominal pain; Rad suggested w/wo to compare to prior; Additional info: Eval abd pain/ischemia? TECHNIQUE: Imaging protocol: Computed tomography of the abdomen without and with contrast. Radiation optimization: All CT scans at this facility use at least one of these dose optimization techniques: automated exposure control; mA and/or kV adjustment per patient size (includes targeted exams where dose is matched to clinical indication); or iterative reconstruction. Contrast material: ISOVUE; Contrast volume: 75 ml; Contrast route: IV; COMPARISON: CT ABDOMEN PELVIS W CON 08/29/2024 1:30 PM FINDINGS: Lungs: There is a pulmonary parenchymal calcification in the right lower lobe consistent with remote granulomatous organism exposure.The visualized lung bases are clear. Pleural spaces: There are no pleural effusions. Heart: The visualized portions of the heart are unremarkable. There is no evidence of pericardial fluid collections. Liver: There is diffuse decrease in hepatic/liver parenchymal density consistent with fatty infiltration. There is a small hyperenhancing focus measuring approximately 6.7 mm in the right hepatic lobe which appears as a hypodensity on the precontrast study and is difficult to identify on the delayed images. Findings may reflect small hemangioma. Gallbladder and biliary ducts: The gallbladder appears within range of normal. The common bile duct measures approximately 6.4 mm. Previously seen prominent gallbladder enhancement is no longer visualized. Pancreas: Pancreas appears normal. Spleen: A splenic calcification suggests prior granulomatous disease. The spleen appears otherwise normal. Adrenal glands: Normal. No mass. Kidneys: Excretory contrast is visualized within the kidneys and ureters on the noncontrast study consistent with recent post infusion CT scan. The previously described 13.1 x 12.2 x 12.7 mm rounded density in the lateral aspect of the right mid kidney appears as subtle well-circumscribed rounded hypodensity on the pre infusion images with internal Hounsfield units measuring approximately 52. This appears as an intermediate rounded density on the post infusion images with internal Hounsfield units measuring 120. This appears as a rounded hypodensity on the delayed 7 minute delayed imaging with internal Hounsfield units measuring 70. These findings suggest solid enhancing lesion which produces a minor contour bulge to the lateral aspect of the right kidney. No additional renal lesions are seen. The remainder of the kidneys are within range of normal. The ureters describe a normal course to the bladder without filling defect or ureterectasis. Stomach and bowel: There is mild fluid filled prominence to the proximal duodenum measuring proximally 4.5 cm. There is mild nonspecific mucosal enhancement of the antral pyloric region and proximal duodenum. Cannot exclude mild peptic disease. There are a few loops of proximal small bowel which show mild apparent mural thickening, possibly an artifact of incomplete distension. More distal visualized loops of small bowel resume normal caliber. Cannot entirely exclude enteritis or other inflammatory/infiltrative processes in the appropriate clinical setting. Correlate clinically. Visualized unopacified loops of colon appear within range of normal. Intraperitoneal space: No evidence of intraperitoneal free air. No significant free fluid. Vasculature: The aorta and iliac arteries demonstrate moderate atherosclerotic calcification. The aorta is tortuous. There is minor ectasia of the infrarenal abdominal aorta measuring approximately 2.1 cm best seen on series 1003, image 29. Lymph nodes: No enlarged lymph nodes. Urinary bladder: The urinary bladder is not evaluated due to incomplete inclusion. Bones/joints: The thoracolumbar spine demonstrates mild degenerative changes at multiple levels, most prominent at L5-S1 where there is marked intervertebral disc space narrowing, moderate endplate discogenic degenerative changes and marginal osteophytes. Bilateral prominent neural foraminal narrowing is present L5-S1 due to marginal osteophytes, slightly greater on left. There is no evidence of acute fracture. There is very trace retrolisthesis of L5 on S1 as well as L2 on L3 , L3 on L4 and L1-L2. There is no evidence of acute fracture. Soft tissues: Unremarkable. Other findings: Motion artifact does moderately limit the sensitivity of this examination. IMPRESSION: 1. Well-circumscribed rounded 13.1 x 12.2 x 12.7 mm lesion in the lateral right kidney with enhancement features suggestive of solid lesion. Renal cell carcinoma is suspect. 2. Mild nonspecific mucosal enhancement of the antral pyloric region and proximal duodenum and mild fluid-filled prominence to the proximal duodenum raising the question of mild peptic disease. 3. A few loops of proximal small bowel show mild mural thickening, not dramatically changed from prior study. More distal visualized loops of small bowel resume normal caliber. Findings raise the question of enteritis or other inflammatory/infiltrative processes in the appropriate clinical setting. Correlate clinically. 4. Minor ectasia of the infrarenal abdominal aorta measuring 2.1 cm. 5. Small hypervascular focus measuring approximately 6.7 mm in the right hepatic lobe which appears as a hypodensity on the precontrast study and is difficult to identify on the delayed images. Findings remain nonspecific due to its small size but may reflect a small hemangioma. Correlate clinically. 6. Fatty hepatic infiltration.
--- NOTE | 2024-08-29 16:19 | P.HP_ITS ---
History of Present Illness *Admission Date: 08/29/24 *Reason for visit:: abdominal pain *History of present illness: Mr. Anguiano is a 59-year-old gentleman who presented to the ER because of complaint of acute pain. Attempts were made in the ER to address his abdominal pain. Labs obtained showing elevated white count of 30,000. Lymphocyte predominant. CT of abdomen obtained shows suspicious lesion on his right kidney. Patient also reported that he had a history of stomach cancer. Patient is afebrile. Cachectic on exam. He has housing unstable. Per the ER, he reports he occasionally uses heroin to control his abdominal pain. Denied fever, hemoptysis, hematemesis, melena. Denies alcohol or tobacco use. Due to intractable abdominal pain, elevated white count, medicine consulted for evaluation and further management. After arriving to the floor, patient reports history of possible cancer in his lymph nodes. This appears to contradict what I was informed of by the ER. Additionally he denies all drugs and alcohol even though he reportedly stated he uses heroin intermittently to the ER. He is stable on room air. Additional CT obtained prior to arrival to the floor. Second CT with and without contrast shows inflammation of the distal stomach concerning for gastritis or other abnormality. Also has solid lesion of his right kidney concerning for possible cancer. Gastric vessels/mesenteric vessels are patent. Stable on room air. Asking for something to drink. [facility] Disclaimer: The information contained in this section may have been updated after the pat ient was seen, as this information can be updated by other users. Family History Other No significant family history Social History Smoking Status: Never smoker alcohol intake: never current occupational status: unemployed Travel in the last 8 weeks: None Have you lived/traveled outside [place] in past 30 days?: No Contact w/someone who lives/traveled outside US past 30 days?: No Exposure to someone with infectious disease in past 14 days?: No Do you have a fever (greater than 100.4 F or 38 C)?: No Have you tested positive for COVID-19: No Exposed to someone with COVID-19 in past 14 days?: No Do you have a sore throat?: No Do you have a cough?: No Do you have any weakness?: No Are you experiencing any nausea/vomitting?: Yes Do you have any diarrhea?: No Are you experiencing any unusual bleeding?: No Do you have any muscle aches/pain?: No Do you have any abdominal pain?: No Are you experiencing loss of taste or smell?: No Review of Systems Review of Systems Review of systems (narrative): 14 point review of systems performed, pertinent positives and negatives as per HPI Meds Home Medications and Allergies Home Medications ?Medication ?Instructions ?Recorded ?Confirmed ?Type No Known Home Medications 08/29/24 08/29/24 History New Prescriptions to Start Prescriptions: Allergies Allergy/AdvReac Type Severity Reaction Status Date / Time buspirone (From BuSpar) Allergy Rash Verified 08/29/24 13:14 hydrocodone Allergy Vomiting Verified 08/29/24 13:14 Exam Data for Last 24 hours Vital signs and Labs for Last 24 Hours: Temp Pulse Resp BP Pulse Ox O2 Del Method 97.9 F 58 L 13 171/100 H 99 Room Air 08/29/24 13:07 08/29/24 15:30 08/29/24 15:30 08/29/24 15:30 08/29/24 15:30 08/29/24 13:07 Laboratory Results - last 24 hr 08/29/24 12:27: WBC 30.6 H*, RBC 5.12, Hgb 14.7, Hct 43.5, MCV 85.0, MCH 28.7, MCHC 33.8, RDW 13.8, Plt Count 233, MPV 10.8 H, Neut % (Auto) 28.6 L, Lymph % (Auto) 67.0 H, [place] % (Auto) 3.4, Eos % (Auto) 0.4, Baso % (Auto) 0.3, Neut # (Auto) 8.8 H, Lymph # (Auto) 20.5 H, [place] # (Auto) 1.1 H, Eos # (Auto) 0.1, Baso # (Auto) 0.1, Total Counted 100, Neutrophils % (Manual) 35 L, Lymphocytes % (Manual) 61 H, Monocytes % (Manual) 4, Platelet Estimate Normal, RBC Morphology Normal, PT 10.3, INR 0.91, Sodium 135 L, Potassium 3.9, Chloride 104, Carbon Dioxide 20 L, Anion Gap 14.9, BUN 39 H, Creatinine 1.30 H, Estimated Creat Clear 45, Estimated GFR 56 L, Est GFR ( Amer) 68, Glucose 143 H, Lactate 2.3 H, Calcium 9.2, Magnesium 1.8, Total Bilirubin 1.0, AST 61 H, ALT 43, Alkaline Phosphatase 85, Troponin I 0.01, Total Protein 7.4, Albumin 4.1, Globulin 3.3 H, Albumin/Globulin Ratio 1.2, Lipase 421 H, Procalcitonin 0.179 08/29/24 14:37: SARS-CoV-2 (PCR) Not detected, Influenza A Untype (PCR) Not detected, Influenza Type B (PCR) Not detected 08/29/24 15:25: Urine Color Yellow, Urine Appearance Clear, Urine pH 7.5, Ur Specific [place] 1.015, Urine Protein Negative, Urine Glucose (UA) 2+, Urine Ketones Negative, Urine Blood Negative, Urine Nitrate Negative, Urine Bilirubin Negative, Urine Urobilinogen 1.0, Ur Leukocyte Esterase Negative, Urine RBC None, Urine WBC None, Ur Squamous Epith Cells None, Urine Bacteria None I & O for Last 24 hours: Intake & Output 08/26/24 08/27/24 08/28/24 08/29/24 23:59 23:59 23:59 23:59 Weight 52.163 kg Constitutional Constitutional: mild distress, cachectic and cooperative *Routine HEENT Exam Head: Present normocephalic Eye: Present EOMI and PERRL ENT: Present mucous membranes moist *Routine Neck Exam Neck: Present supple; Absent lymphadenopathy *Routine Respiratory Exam Respiratory: Present CTA bilaterally *Routine Cardiovascular Exam Cardiovascular: Present RRR *Routine Abdominal Exam Abdominal: Present normoactive bowel sounds, tenderness (significant in epigastric region) and guarding; Absent distended or rebound *Routine Rectal Exam Rectal:: deferred *Routine Genitalia Exam Genitalia:: deferred *Routine Extremities Exam Extremities: Absent cyanosis, clubbing or edema *Routine Skin Exam Skin: Present warm; Absent rash *Routine Neurological Exam Neurological: Present alert, oriented X3 and moving all extremities; Absent altered mental status Assessment and Plan *Assessment and plan (1) Leukocytosis: Status: Acute Qualifiers: Leukocytosis type: lymphocytosis Qualified Code(s): D72.820 - Lymphocytosis (symptomatic) Category: Medical Code(s): D72.829 - Elevated white blood cell count, unspecified (2) Elevated lipase: Status: Acute Category: Medical Code(s): R74.8 - Abnormal levels of other serum enzymes (3) Abdominal pain, acute, epigastric: Status: Acute Category: Medical Code(s): R10.13 - Epigastric pain (4) Cachexia: Status: Acute Category: Medical Code(s): R64 - Cachexia Plan 59-year-old male with what appears to be more chronic than acute pain who presented to the ER due to severity of pain. Workup in the ER found to have leukocytosis of suspicious etiology. Medicine consulted for admission and further management. Discussed case with ER, request admission due to inability to control pain and unclear etiology of white count. Initiated on empiric antibiotics. I agreed to admit for further care. Hemodynamically stable. Problems addressed as follows: Leukocytosis - Patient reports mixed history of possibly gastric cancer when evaluated in the ED, had lymphoma when evaluated by myself. White count lymphocyte predominant elevated at 30,000. ALT hemoglobin 14.7. Platelets 233. Peripheral smear pending. Repeat CBC, CMP, magnesium ordered for the morning - Cultures obtained, empiric antibiotics initiated. Given lymphocyte predominance and no focal source of infection, will hold further antibiotics at this time pending culture results or change in symptoms Abdominal pain - Per my review of CT, has thickening of distal stomach. Concern for gastritis. Suspect peptic ulcer disease. Globin normal. Will initiate pantoprazole 80 mg once followed by 40 mg twice daily - Administer GI cocktail x 1. Tums every 6 hours as needed - Close monitoring of abdominal pain. Will advance diet at patient request - If develops worsening discomfort, change in hemoglobin, concern for GI bleed, will consult surgery/GI for further evaluation. - Would benefit from EGD as an outpatient if tolerant of p.o. intake and improvement abdominal pain Appears to have CKD with creatinine 1.3, BUN 39. Magnesium 1.8, potassium 3.9. Reevaluate with labs in the morning. Renal lesion. Has solid mass in right kidney concerning for small RCC per discussion with anesthesia. Refer to urology as an outpatient for further evaluation, monitoring, possible treatment. Hypertension: Potentially secondary to pain induced. Will initiate low-dose lisinopril and titrate conservatively. Initiate 5 mg daily Cachexia/severe protein calorie malnutrition. Will consider supplementation when able to advance diet pending abdominal pain Full code Full liquid diet
--- NOTE | 2024-08-29 16:25 | PC.NURSE ---
spoke with house sup for bed request for admission
--- NOTE | 2024-08-29 16:45 | PC.NURSE ---
Pt to ct by gurdeep
[2024-08-29] MEDS: IOPAMIDOL-370 (76%);100ML BOTTLE 75 ML IV (16:50)
[2024-08-29 17:02] LABS: Reflex Lactic Add Lactic Reflex
[2024-08-29 17:12] LABS: HIV Combo NEGATIVE (Negative)
[2024-08-29 17:19] LABS: Hepatitis C Ab Qual. W/ RFX REACTIVE (Negative)
[2024-08-29] MEDS: DICYCLOMINE 10MG CAPSULE 20 MG PO ×2 (17:43→21:59)
[2024-08-29] MEDS: LACTATED RINGERS 1000ML 1,000 ML 100 ML IV (17:44)
[2024-08-29 17:51] LABS: Lactic Acid Follow Up (RFLX 1) 2.7 mmol/L (0.7-2.1)
[2024-08-29] MEDS: PANTOPRAZOLE SODIUM 80 MG in 0.9 % SODIUM CHLORIDE 100 ML 100 MG IV (18:01)
[2024-08-29] MEDS: BELLADONNA ALKALOIDS 60 ML ML PO (18:02)
[2024-08-29 18:05] LABS: Troponin I 0.02 ng/ml (0.00-0.034)
[2024-08-29 19:16] LABS: Reflex Lactic (2 hrs) Add Lactic Reflex
[2024-08-29 20:04] LABS: Lactic Acid Follow up (RFLX 2) 2.1 mmol/L (0.7-2.1)
[2024-08-29 20:17] LABS: Troponin I 0.01 ng/ml (0.00-0.034)
[2024-08-29] MEDS: PANTOPRAZOLE 40MG TABLET 40 MG PO (21:59)
--- NOTE | 2024-08-29 22:45 | PC.NURSE ---
Pt has no IV access, despite multiple attempts by staff members. Edison doe.
[2024-08-30] MEDS: ROPINIROLE HCL 0.25 MG TABLET 0.5 MG PO ×2 (00:06→20:24)
[2024-08-30] MEDS: HYDROMORPHONE 2MG/ML SYRINGE 0.5 MG IV ×2 (03:21→22:25)
[2024-08-30 04:00] VITALS: BP 181/114; PULSE 57; RESP 18; TEMP 36.9; O2SAT 99; BMI 15.3
--- NOTE | 2024-08-30 05:53 | PC.NURSE ---
Pt has had moments of anxiety and admitted to severe back pain (Edison Burr, aware). Pt was treated per JUL for pain and has rested since. Edison Burr was able to gain IV access with a 22 to the right hand. Pt is tolerating fluids well at this time.
[2024-08-30 08:00] VITALS: BP 148/102; PULSE 71; RESP 16; TEMP 36.9; O2SAT 97
--- NOTE | 2024-08-30 08:19 | PC.NURSE ---
Student nurseReema will be providing care under my supervision.
[2024-08-30 08:40] LABS: Basophils # 0.1 K/mm3 (0-0.2); Basophils % 0.4 % (0.1-2.0); Eosinophils # 0.1 Kmm3 (0.0-0.4); Eosinophils % 0.4 % (0.1-12.0); Hematocrit 43.2 % (42.0-52.0); Hemoglobin 14.7 g/dL (14.1-18.0); Lymphocytes # 22.3 K/mm3 (0.7-4.5); Lymphocytes % 71.9 % (10-50); Mean Corpuscular Hemoglobin 28.6 pg (27.0-31.2); Mean Platelet Volume 11.2 fl (7.4-10.4); Monocytes # 0.8 K/mm3 (0.1-1.0); Monocytes % 2.5 % (1.7-9.3); Neutrophils # 7.6 K/mm3 (1.8-7.8); Neutrophils % 24.6 % (37.0-80.0); Nucleated Red Blood Cells # 0 10^3/uL; Nucleated Red Blood Cells % 0 %; Platelet Count 219 K/mm3 (142-424); Red Blood Count 5.14 M/mm3 (4.60-6.20); Red Cell Distribution Width 13.6 % (11.5-17.5); Red Cell Distribution Width-SD 41.9 fL
[2024-08-30 08:44] LABS: MANUAL DIFFERENTIAL MANUAL DIFFERENTIAL (MANUAL DIFF)
[2024-08-30 08:49] LABS: Chloride 104 mmol/L (98-107); Potassium 3.5 mmoL/L (3.5-5.1); Sodium 133 mmol/L (136-145)
[2024-08-30 08:52] LABS: Alanine Aminotransferase 41 U/L (12-78); Albumin/Globulin Ratio 1.3 (1.1-1.8); Alkaline Phosphatase 68 U/L (38-126); Anion Gap 10.5 mEq/L (5-15); Aspartate Amino Transferase 52 U/L (17-59); Bilirubin,Total 1.1 mg/dl (0.2-1.3); Blood Urea Nitrogen 19 mg/dl (9-20); Carbon Dioxide 22 mmol/L (22.0-30.0); Creatinine Clearance Estimated 45 mL/min (50-200); Estimated Glomerular Filt Rate 62 ml/min (>60); GFR (African American) 75 ML/MIN (>60); Globulin 3.1 g/dL (1.3-3.2); Glucose 134 mg/dl (74-100); Total Protein,Serum 7.1 g/dl (6.3-8.2)
[2024-08-30 08:53] LABS: Magnesium 1.6 mg/dl (1.6-2.3)
[2024-08-30 09:06] LABS: Lymphocytes % 75 % (10-50); Monocytes % 1 % (2-9); Neutrophils % 24 % (42-76); Platelet Estimate Normal; RBC Morphology Normal; Total Cells Counted 100
[2024-08-30] MEDS: LISINOPRIL 5MG TABLET 5 MG PO (10:24)
[2024-08-30] MEDS: PANTOPRAZOLE 40MG VIAL 40 MG IV ×2 (10:24→20:24)
[2024-08-30] MEDS: SODIUM CHLORIDE 0.9% 10ML VIAL 10 ML IV ×2 (10:24→20:24)
[2024-08-30] MEDS: DICYCLOMINE 10MG CAPSULE 20 MG PO ×2 (10:27→12:49)
[2024-08-30] MEDS: CALCIUM CARBONATE 500MG CHEWTAB 500 MG PO (10:27)
[2024-08-30] MEDS: BELLADONNA ALKALOIDS 60 ML ML PO (13:08)
[2024-08-30] MEDS: MORPHINE 4MG/ML SYRINGE 4 MG IV ×2 (13:08→20:30)
--- NOTE | 2024-08-30 15:33 | PC.NURSE ---
Pt is A&O x4. Currently in bed sleeping. Has c/o discomfort to Abdomen. Medicated with TUMS, Morphine and GI cocktail. Appetite has been fair today. BP has been elevated again this shift. Lisinopril administered. spoke with pt about Hospice. Pt stated he will think about it.
[2024-08-30 16:00] VITALS: BP 130/83; PULSE 67; RESP 20; TEMP 36.9; O2SAT 100
[2024-08-30 20:00] VITALS: BP 162/96; PULSE 79; RESP 16; TEMP 36.9; O2SAT 98
[2024-08-31 04:00] VITALS: BP 146/91; PULSE 70; RESP 16; TEMP 37.3; O2SAT 97; BMI 15.2
--- NOTE | 2024-08-31 04:44 | PC.NURSE ---
Pt did c/o abdominal pain this shift and was treated per JUL. Pt states that morphine isn't helping with his pain. Contacted Antonio Burr APRN, new orders for pain control, see JUL.
[2024-08-31 07:46] VITALS: BP 107/70; PULSE 89; RESP 16; TEMP 36.6; O2SAT 95
--- NOTE | 2024-08-31 07:54 | P.PN_ITS ---
Subjective *Date: 08/31/24 *Time: 15:34 Interval history: Date of service: 08/30/2024 Patient doing reasonably well today, abdominal pain improving. Tolerating full liquid diet. Aware of suspected cancer diagnosis, does not want chemotherapy at this time. Will consider hospice care. Exam Data for Last 24 hours Vital signs and Labs for Last 24 Hours: Temp Pulse Resp BP Pulse Ox O2 Del Method 97.8 F 89 16 107/70 L 95 Room Air 08/31/24 07:46 08/31/24 07:46 08/31/24 07:46 08/31/24 07:46 08/31/24 07:46 08/31/24 07:46 Laboratory Results - last 24 hr 08/30/24 08:05: WBC 31.0 H*, RBC 5.14, Hgb 14.7, Hct 43.2, MCV 84.0, MCH 28.6, MCHC 34.0, RDW 13.6, Plt Count 219, MPV 11.2 H, Neut % (Auto) 24.6 L, Lymph % (Auto) 71.9 H, [place] % (Auto) 2.5, Eos % (Auto) 0.4, Baso % (Auto) 0.4, Neut # (Auto) 7.6, Lymph # (Auto) 22.3 H, [place] # (Auto) 0.8, Eos # (Auto) 0.1, Baso # (Auto) 0.1, Total Counted 100, Neutrophils % (Manual) 24 L, Lymphocytes % (Manual) 75 H, Monocytes % (Manual) 1 L, Platelet Estimate Normal, RBC Morphology Normal, Sodium 133 L, Potassium 3.5, Chloride 104, Carbon Dioxide 22, Anion Gap 10.5, BUN 19 D, Creatinine 1.20, Estimated Creat Clear 45, Estimated GFR 62, Est GFR ( Amer) 75, Glucose 134 H, Calcium 9.0, Magnesium 1.6 D, Total Bilirubin 1.1, AST 52, ALT 41, Alkaline Phosphatase 68, Total Protein 7.1, Albumin 4.0, Globulin 3.1, Albumin/Globulin Ratio 1.3 I & O for Last 24 hours: Intake & Output 08/28/24 08/29/24 08/30/24 08/31/24 23:59 23:59 23:59 23:59 Intake Total 3004 / 3244 240 / 240 Output Total 0 / 0 0 / 0 Balance 3004 / 3244 240 / 240 Weight 50.859 kg 48.716 kg 48.217 kg Microbiology Reports for the Last 24 Hours: Microbiology 08/29/24 13:00 Blood Blood Culture - Preliminary NO GROWTH AFTER 24 HOURS 08/29/24 12:55 Blood Blood Culture - Preliminary NO GROWTH AFTER 24 HOURS Constitutional Constitutional: no acute distress and cachectic *Routine HEENT Exam Head: Present normocephalic Eye: Present EOMI and PERRL ENT: Present mucous membranes moist *Routine Neck Exam Neck: Present supple; Absent lymphadenopathy *Routine Respiratory Exam Respiratory: Present CTA bilaterally *Routine Cardiovascular Exam Cardiovascular: Present RRR *Routine Abdominal Exam Abdominal: Present soft, normoactive bowel sounds and tenderness Comments: Moderate epigastric tenderness to palpation. No peritoneal signs. *Routine Extremities Exam Extremities: Absent cyanosis, clubbing or edema *Routine Skin Exam Skin: Present warm; Absent rash *Routine Neurological Exam Neurological: Present alert and oriented X3 Assessment and Plan *Assessment and plan (1) Cachexia: Status: Acute Category: Medical Code(s): R64 - Cachexia (2) Leukocytosis: Status: Acute Qualifiers: Leukocytosis type: lymphocytosis Qualified Code(s): D72.820 - Lymphocytosis (symptomatic) Category: Medical Code(s): D72.829 - Elevated white blood cell count, unspecified (3) Elevated lipase: Status: Acute Category: Medical Code(s): R74.8 - Abnormal levels of other serum enzymes (4) Abdominal pain, acute, epigastric: Status: Acute Category: Medical Code(s): R10.13 - Epigastric pain Plan Tal Brush is a 59-year-old male who presented with acute on chronic abdominal pain and was admitted for the same. #Epigastric abdominal pain #Acute pancreatitis #Suspected PUD #Enteritis ? Patient states he has had on and off epigastric pain for more than an year. ? CT abdomen/pelvis suggestive of duodenal ulceration and enteritis, and lipase elevated to 421. Hemoglobin stable at 14.7. LFTs normal. ? Continue IV Protonix 40 mg twice daily, sucralfate with meals. ? Patient tolerating full liquid diet, will advance to low-fat diet. ? Morphine as needed for pain control. #Suspected right renal malignancy #Leukocytosis, suspected malignancy #Severe protein calorie malnutrition #Cachexia BMI 15 ? Leukocytosis 31, predominantly lymphocytic. Suspect for malignancy. No signs of active infection at this time. ? CT abdomen/pelvis revealed 13 x 12 x 12 cm mass in right kidney. Highly suspicious for renal cell carcinoma in the setting. ? Patient was aware of these suspected diagnosis, became emotional but understood. He states he has supportive family. He states he will consider hospice as he does not want to pursue chemotherapy at this time. ? Follow-up peripheral smear. Full code DVT prophylaxis: Lovenox 30 mg
--- NOTE | 2024-08-31 07:54 | P.PN_ITS ---
Subjective *Date: 08/31/24 *Time: 15:42 Interval history: Patient seems to have increased epigastric pain today, suspecting likely from PUD and/or pancreatitis. Switched to Dilaudid with improvement in pain symptoms. Exam Data for Last 24 hours Vital signs and Labs for Last 24 Hours: Temp Pulse Resp BP Pulse Ox O2 Del Method 97.8 F 89 16 107/70 L 95 Room Air 08/31/24 07:46 08/31/24 07:46 08/31/24 07:46 08/31/24 07:46 08/31/24 07:46 08/31/24 07:46 Laboratory Results - last 24 hr 08/30/24 08:05: WBC 31.0 H*, RBC 5.14, Hgb 14.7, Hct 43.2, MCV 84.0, MCH 28.6, MCHC 34.0, RDW 13.6, Plt Count 219, MPV 11.2 H, Neut % (Auto) 24.6 L, Lymph % (Auto) 71.9 H, [place] % (Auto) 2.5, Eos % (Auto) 0.4, Baso % (Auto) 0.4, Neut # (Auto) 7.6, Lymph # (Auto) 22.3 H, [place] # (Auto) 0.8, Eos # (Auto) 0.1, Baso # (Auto) 0.1, Total Counted 100, Neutrophils % (Manual) 24 L, Lymphocytes % (Manual) 75 H, Monocytes % (Manual) 1 L, Platelet Estimate Normal, RBC Morphology Normal, Sodium 133 L, Potassium 3.5, Chloride 104, Carbon Dioxide 22, Anion Gap 10.5, BUN 19 D, Creatinine 1.20, Estimated Creat Clear 45, Estimated GFR 62, Est GFR ( Amer) 75, Glucose 134 H, Calcium 9.0, Magnesium 1.6 D, Total Bilirubin 1.1, AST 52, ALT 41, Alkaline Phosphatase 68, Total Protein 7.1, Albumin 4.0, Globulin 3.1, Albumin/Globulin Ratio 1.3 I & O for Last 24 hours: Intake & Output 08/28/24 08/29/24 08/30/24 08/31/24 23:59 23:59 23:59 23:59 Intake Total 3004 / 3244 240 / 240 Output Total 0 / 0 0 / 0 Balance 3004 / 3244 240 / 240 Weight 50.859 kg 48.716 kg 48.217 kg Microbiology Reports for the Last 24 Hours: Microbiology 08/29/24 13:00 Blood Blood Culture - Preliminary NO GROWTH AFTER 24 HOURS 08/29/24 12:55 Blood Blood Culture - Preliminary NO GROWTH AFTER 24 HOURS Constitutional Constitutional: no acute distress and cachectic *Routine HEENT Exam Head: Present normocephalic Eye: Present EOMI and PERRL ENT: Present mucous membranes moist *Routine Neck Exam Neck: Present supple; Absent lymphadenopathy *Routine Respiratory Exam Respiratory: Present CTA bilaterally *Routine Cardiovascular Exam Cardiovascular: Present RRR *Routine Abdominal Exam Abdominal: Present soft, normoactive bowel sounds and tenderness Comments: Moderate epigastric tenderness to palpation. No peritoneal signs. *Routine Extremities Exam Extremities: Absent cyanosis, clubbing or edema *Routine Skin Exam Skin: Present warm; Absent rash *Routine Neurological Exam Neurological: Present alert and oriented X3 Assessment and Plan *Assessment and plan (1) Cachexia: Status: Acute Category: Medical Code(s): R64 - Cachexia (2) Leukocytosis: Status: Acute Qualifiers: Leukocytosis type: lymphocytosis Qualified Code(s): D72.820 - Lymphocytosis (symptomatic) Category: Medical Code(s): D72.829 - Elevated white blood cell count, unspecified (3) Elevated lipase: Status: Acute Category: Medical Code(s): R74.8 - Abnormal levels of other serum enzymes (4) Abdominal pain, acute, epigastric: Status: Acute Category: Medical Code(s): R10.13 - Epigastric pain Plan Tal Brush is a 59-year-old male who presented with acute on chronic abdominal pain and was admitted for the same. #Epigastric abdominal pain #Acute pancreatitis #Suspected PUD #Enteritis ? Patient states he has had on and off epigastric pain for more than an year. ? CT abdomen/pelvis suggestive of duodenal ulceration and enteritis, and lipase elevated to 421. Hemoglobin stable at 14.7. LFTs normal. ? Patient seems to have increased epigastric abdominal pain today, repeat CTA abdomen/pelvis nonconcerning for new acute findings or stenosis. Did reveal nonspecific hypodense lesion in the right groin. ? Pain may be related to suspected PUD and/or pancreatitis. Switched from morphine to Dilaudid with improvement in pain symptoms. ? Started misoprostol 200 mg every 6 hours, continue IV Protonix 40 mg twice daily, sucralfate with meals. ? Started Zosyn for increased abdominal pain given enteritis, leukocytosis. ? Continue low-fat diet for now. ? Dilaudid as needed for pain control. ? GI consulted, for any further recommendations. #Suspected right renal malignancy #Leukocytosis, suspected malignancy #Severe protein calorie malnutrition #Cachexia BMI 15 ? Leukocytosis 33, predominantly lymphocytic. No fevers, vital signs stable. Suspect for malignancy. No signs of active infection at this time. ? CT abdomen/pelvis revealed 13 x 12 x 12 cm mass in right kidney. Highly suspicious for renal cell carcinoma in this setting. ? Patient was aware of these suspected diagnosis, became emotional but understood. He states he has supportive family. He states he will consider hospice as he does not want to pursue chemotherapy at this time. ? Follow-up peripheral smear. Full code DVT prophylaxis: Lovenox 30 mg
[2024-08-31] MEDS: PANTOPRAZOLE 40MG VIAL 40 MG IV ×2 (08:20→20:25)
[2024-08-31] MEDS: LISINOPRIL 5MG TABLET 5 MG PO (08:24)
[2024-08-31] MEDS: MORPHINE 4MG/ML SYRINGE 4 MG IV (08:24)
[2024-08-31 08:33] LABS: Basophils # 0.1 K/mm3 (0-0.2); Basophils % 0.2 % (0.1-2.0); Eosinophils # 0.1 Kmm3 (0.0-0.4); Eosinophils % 0.4 % (0.1-12.0); Hematocrit 44.1 % (42.0-52.0); Lymphocytes # 24.7 K/mm3 (0.7-4.5); Lymphocytes % 74.5 % (10-50); Mean Corpuscular Hemoglobin 28.7 pg (27.0-31.2); Mean Corpuscular Volume 84.5 fl (80-94); Mean Platelet Volume 11.1 fl (7.4-10.4); Monocytes # 0.8 K/mm3 (0.1-1.0); Monocytes % 2.5 % (1.7-9.3); Neutrophils # 7.3 K/mm3 (1.8-7.8); Neutrophils % 22.1 % (37.0-80.0); Nucleated Red Blood Cells # 0 10^3/uL; Nucleated Red Blood Cells % 0 %; Platelet Count 204 K/mm3 (142-424); Red Blood Count 5.22 M/mm3 (4.60-6.20); Red Cell Distribution Width 13.7 % (11.5-17.5); Red Cell Distribution Width-SD 42.2 fL
[2024-08-31 08:38] LABS: Chloride 102 mmol/L (98-107); White Blood Count 33.1 K/mm3 (4.8-10.8)
[2024-08-31 08:39] LABS: Albumin Level 3.8 g/dl (3.5-5.0); MANUAL DIFFERENTIAL MANUAL DIFFERENTIAL (MANUAL DIFF); Potassium 3.8 mmoL/L (3.5-5.1); Sodium 133 mmol/L (136-145)
[2024-08-31 08:41] LABS: Blood Urea Nitrogen 23 mg/dl (9-20); Creatinine Clearance Estimated 45 mL/min (50-200); Estimated Glomerular Filt Rate 62 ml/min (>60); GFR (African American) 75 ML/MIN (>60)
[2024-08-31 08:42] LABS: Alanine Aminotransferase 43 U/L (12-78); Albumin/Globulin Ratio 1.3 (1.1-1.8); Alkaline Phosphatase 65 U/L (38-126); Anion Gap 13.8 mEq/L (5-15); Aspartate Amino Transferase 48 U/L (17-59); Bilirubin,Total 0.9 mg/dl (0.2-1.3); Calcium 9.1 mg/dl (8.4-10.2); Carbon Dioxide 21 mmol/L (22.0-30.0); Globulin 2.9 g/dL (1.3-3.2); Glucose 200 mg/dl (74-100); Total Protein,Serum 6.7 g/dl (6.3-8.2)
[2024-08-31 09:12] LABS: Thyroid Stimulating Hormone 0.24 uIU/mL (0.465-4.68)
[2024-08-31 09:16] LABS: Ferritin 309 ng/ml (17.9-464)
[2024-08-31 09:19] LABS: Lymphocytes % 80 % (10-50); Monocytes % 3 % (2-9); Neutrophils % 17 % (42-76); Platelet Estimate Normal; RBC Morphology Normal; Total Cells Counted 100
[2024-08-31 09:20] LABS: Iron 164 ug/dL (49-181)
[2024-08-31 09:21] LABS: Chol/HDL Ratio 2.2 (1-3.5); Cholesterol 131 mg/dl (140-200); HDL Cholesterol 59 mg/dl (40-60); Magnesium 1.8 mg/dl (1.6-2.3); Triglycerides 105 mg/dl (30-150); VLDL Cholesterol 21 mg/dL (0-40)
[2024-08-31 09:31] LABS: Total Iron Binding Capacity 330 ug/dL (261-462)
[2024-08-31 09:38] LABS: Free T4 (Free Thyroxine) 1.46 ng/dl (0.78-2.19)
[2024-08-31 09:39] LABS: Vitamin B12 527 pg/mL (239-931)
[2024-08-31 09:56] LABS: Folate 9.23 ng/mL
[2024-08-31] MEDS: SUCRALFATE 1GM TABLET 1 GM PO ×3 (11:29→20:25)
[2024-08-31] MEDS: PIPERCILLIN/TAZO 3.375 GM in 0.9 % SODIUM CHLORIDE 50 ML IV ×3 (11:29→22:09)
[2024-08-31] MEDS: MORPHINE 2MG/ML SYRINGE 2 MG IV (11:31)
[2024-08-31] MEDS: POLYETHYLENE GLYCOL 3350 17 GM PACKET PO (11:32)
--- NOTE | 2024-08-31 12:55 | CT_ITS ---
PROCEDURE INFORMATION: Exam: CTA Abdomen and Pelvis With Contrast Exam date and time: 08/31/2024 1:14 PM Age: 59 years old Clinical indication: Other: H/o renal cancer, worsening epigastric pain TECHNIQUE: Imaging protocol: Computed tomographic angiography of the abdomen and pelvis with contrast. Exam focused on the arteries. 3D rendering (Not supervised by radiologist): MIP and/or 3D reconstructed images were created by the technologist. Radiation optimization: All CT scans at this facility use at least one of these dose optimization techniques: automated exposure control; mA and/or kV adjustment per patient size (includes targeted exams where dose is matched to clinical indication); or iterative reconstruction. Contrast material: ISOVUE; Contrast volume: 80 ml; Contrast route: INTRAVENOUS (IV); COMPARISON: CT ABDOMEN WO/W CON 08/29/2024 4:48 PM FINDINGS: Aorta: No aortic aneurysm. Mild infrarenal ectasia. No aortic dissection. Moderate atherosclerosis. Celiac trunk and mesenteric arteries: No occlusion or significant stenosis. Renal arteries: No occlusion or significant stenosis. Duplicated right renal artery. Right iliac arteries: No occlusion or significant stenosis. Right femoral/popliteal arteries: Hypodense fusiform structure in the right groin adjacent to the right distal common femoral artery noted on image 139 series 5, measuring 1.3 x 1.6 x 3.6 cm(AP x CC x TV).. Nonspecific. May represent (necrotic) lymph node versus less likely clot within a vein. Left iliac arteries: No occlusion or significant stenosis. Liver: No mass. Gallbladder and biliary ducts: Unremarkable. No calcified stones. No ductal dilation. Pancreas: Unremarkable. No mass. No ductal dilation. Spleen: Unremarkable. No splenomegaly. Adrenal glands: Unremarkable. No mass. Kidneys and ureters: Round lesion in the right kidney interpolar region cortex measuring 13 x 13 mm, attenuating at 56 Hounsfield units. No renal calculi or obstruction bilaterally. Stomach and bowel: Unremarkable. No obstruction. No mucosal thickening. Appendix: No evidence of appendicitis. Intraperitoneal space: Unremarkable. No free air. No significant fluid collection. Lymph nodes: Otherwise, no appreciable lymphadenopathy. Urinary bladder: Unremarkable. No mass. Reproductive: Unremarkable as visualized. Bones/joints: No acute fracture. Soft tissues: Unremarkable. IMPRESSION: 1. No renal or ureteral calculi or obstruction bilaterally. 2. 13 x 13 mm enhancing round lesion right kidney may represent reported malignancy. Unless recently performed, can be further evaluated with MRI according to clinical discretion. 3. No bowel obstruction or acute inflammation.. 5. Hypodense fusiform structure in the right groin adjacent to the right distal common femoral artery measuring 1.3 x 1.6 x 3.6 cm (AP x CC x TV) is nonspecific. May represent (necrotic) lymph node versus less likely clot within a vein. Recommend clinical correlation. Further evaluation can be performed with ultrasound MRI non emergently according to clinical discretion.
[2024-08-31] MEDS: HYDROMORPHONE 2MG/ML SYRINGE 1 MG IV ×2 (13:03→18:33)
[2024-08-31] MEDS: IOPAMIDOL-370 (76%);100ML BOTTLE 80 ML IV (13:23)
[2024-08-31] MEDS: 0.9 % SODIUM CHLORIDE 50 ML VIAL IV (13:23)
[2024-08-31] MEDS: SODIUM CHLORIDE 0.9% 10ML FLUSH SYRINGE 10 ML IV (13:23)
[2024-08-31 13:35] LABS: Peripheral Smear Review Scanned Result
[2024-08-31] MEDS: miSOPROStoL 200 MCG TABLET PO ×2 (13:39→18:34)
[2024-08-31] MEDS: LACTATED RINGERS 1000ML 1,000 ML 75 ML IV ×2 (13:39→23:21)
[2024-08-31] MEDS: LACTATED RINGERS 1000ML 1,000 ML 500 ML IV (15:56)
[2024-08-31 16:00] VITALS: BP 109/88; PULSE 67; RESP 16; TEMP 37.1; O2SAT 100
--- NOTE | 2024-08-31 17:26 | PC.NURSE ---
aox4, no o2 support at this time. medicated for abd pain a couple times today. has rested in bed for most of shift.
[2024-08-31 19:41] VITALS: BMI 15.2
[2024-08-31 20:00] VITALS: BP 103/61; PULSE 71; RESP 16; TEMP 37.1; O2SAT 95
[2024-08-31] MEDS: SODIUM CHLORIDE 0.9% 10ML VIAL 10 ML IV (20:24)
[2024-08-31] MEDS: ROPINIROLE HCL 0.25 MG TABLET 0.5 MG PO (20:25)
[2024-09-01] MEDS: HYDROMORPHONE 2MG/ML SYRINGE 1 MG IV ×3 (00:49→20:02)
[2024-09-01] MEDS: miSOPROStoL 200 MCG TABLET PO ×4 (01:16→18:37)
[2024-09-01 04:00] VITALS: BP 117/78; PULSE 50; RESP 16; TEMP 36.6; O2SAT 100; BMI 15.7
[2024-09-01] MEDS: PIPERCILLIN/TAZO 3.375 GM in 0.9 % SODIUM CHLORIDE 50 ML IV ×4 (04:30→23:03)
[2024-09-01] MEDS: SUCRALFATE 1GM TABLET 1 GM PO ×4 (06:05→20:02)
--- NOTE | 2024-09-01 06:21 | PC.NURSE ---
Pt is alert and oriented x4 and tolerating RA well. Pt did agree to a shower this shift, this nurse and charge nurse were able to find pt some clean clothes to wear. pt has c/o back and stomach pain and has be treated per MAR. Pt did tolerate antibiotics well.
[2024-09-01 07:14] LABS: Basophils # 0.1 K/mm3 (0-0.2); Basophils % 0.4 % (0.1-2.0); Eosinophils # 0.2 Kmm3 (0.0-0.4); Eosinophils % 0.9 % (0.1-12.0); Hematocrit 37.8 % (42.0-52.0); Lymphocytes # 16.4 K/mm3 (0.7-4.5); Mean Corpuscular HGB Conc 33.9 g/dL (31.8-35.4); Mean Corpuscular Hemoglobin 28.9 pg (27.0-31.2); Mean Corpuscular Volume 85.3 fl (80-94); Mean Platelet Volume 11.4 fl (7.4-10.4); Monocytes # 0.6 K/mm3 (0.1-1.0); Neutrophils % 18.6 % (37.0-80.0); Nucleated Red Blood Cells # 0 10^3/uL; Nucleated Red Blood Cells % 0 %; Platelet Count 178 K/mm3 (142-424); Red Blood Count 4.43 M/mm3 (4.60-6.20); Red Cell Distribution Width 13.8 % (11.5-17.5); Red Cell Distribution Width-SD 42.7 fL; White Blood Count 21.4 K/mm3 (4.8-10.8)
[2024-09-01 07:17] LABS: MANUAL DIFFERENTIAL MANUAL DIFFERENTIAL (MANUAL DIFF)
[2024-09-01 07:54] LABS: Lymphocytes % 81 % (10-50); Monocytes % 1 % (2-9); Neutrophils % 18 % (42-76); Platelet Estimate Normal; RBC Morphology Normal; Total Cells Counted 100
[2024-09-01 07:59] LABS: Hemoglobin 12.9 g/dL (14.1-18.0)
[2024-09-01 08:00] VITALS: BP 129/73; PULSE 55; RESP 18; TEMP 36.7; O2SAT 98
[2024-09-01] MEDS: ENOXAPARIN 30MG/0.3ML SYRINGE 30 MG SUBCUT (08:18)
[2024-09-01] MEDS: PANTOPRAZOLE 40MG VIAL 40 MG IV ×2 (08:18→20:02)
[2024-09-01 08:39] LABS: Hemoglobin A1C 5.7 % (4.0-6.0)
[2024-09-01 09:12] LABS: Alanine Aminotransferase 26 U/L (12-78); Albumin Level 2.8 g/dl (3.5-5.0); Alkaline Phosphatase 62 U/L (38-126); Anion Gap 10.1 mEq/L (5-15); Aspartate Amino Transferase 33 U/L (17-59); Bilirubin,Total 0.7 mg/dl (0.2-1.3); Blood Urea Nitrogen 26 mg/dl (9-20); Calcium 8.3 mg/dl (8.4-10.2); Carbon Dioxide 23 mmol/L (22.0-30.0); Chloride 102 mmol/L (98-107); Creatinine Clearance Estimated 43 mL/min (50-200); Estimated Glomerular Filt Rate 56 ml/min (>60); GFR (African American) 68 ML/MIN (>60); Globulin 2.8 g/dL (1.3-3.2); Glucose 85 mg/dl (74-100); Potassium 4.1 mmoL/L (3.5-5.1); Sodium 131 mmol/L (136-145); Total Protein,Serum 5.6 g/dl (6.3-8.2)
[2024-09-01] MEDS: HYDROMORPHONE 2MG/ML SYRINGE 0.5 MG IV (10:04)
[2024-09-01] MEDS: LISINOPRIL 5MG TABLET 5 MG PO (10:05)
[2024-09-01 10:06] VITALS: BP 115/78; PULSE 67; O2SAT 98
[2024-09-01] MEDS: LIPASE/PROTEASE/AMYLASE 1 EACH CAPSULE.DR 2 EACH PO ×2 (12:08→16:44)
[2024-09-01] MEDS: LACTATED RINGERS 1000ML 1,000 ML 75 ML IV (13:01)
--- NOTE | 2024-09-01 14:07 | EXP.GE.CONS ---
History of Present Illness *Admission Date: 08/29/24 *History of present illness: Mr. Anguiano is a 59-year-old gentleman who presented to the ER because of complaint of acute pain. Attempts were made in the ER to address his abdominal pain. Labs obtained showing elevated white count of 30,000. Lymphocyte predominant. CT of abdomen obtained shows suspicious lesion on his right kidney. Patient also reported that he had a history of stomach cancer. Patient is afebrile. Cachectic on exam. He has housing unstable. Per the ER, he reports he occasionally uses heroin to control his abdominal pain. Denied fever, hemoptysis, hematemesis, melena. Denies alcohol or tobacco use. Due to intractable abdominal pain, elevated white count, medicine consulted for evaluation and further management. 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 He has not seen another physician for 18 months. Solid renal lesion noted on CT imaging here concerning for malignancy. Patient reports that that is new and was not seen 18 months ago in [facility]. Has been getting persistent recurrent episodes of nausea vomiting mostly epigastric pain sometimes right upper quadrant. Smokes 1/2 pack cigarettes a day. Occasionally uses ibuprofen which does help his epigastric pain. Lipase slightly elevated at 421 but no signs of pancreatitis on imaging ultrasound or CT. No gallstones no CBD dilation. Denies alcohol consumption for many years. Does smoke cigarettes and admits to using heroin regularly. He did have proximal gastric mural thickening noted on CT. Occasional nausea and vomiting, none today, able to eat and drink appropriately. No worsening or improvement of epigastric pain with p.o. intake. Also incidental finding of positive hepatitis C antibody. Awaiting RNA. Current liver enzymes are within normal limit, had mild elevation of AST at 61 upon arrival but has resolved. [facility] Disclaimer: The information contained in this section may have been updated after the patient was seen, as this information can be updated by other users. Family History Other No significant family history Social History Smoking Status: Never smoker alcohol intake: never current occupational status: unemployed Travel in the last 8 weeks: None Have you lived/traveled outside US in past 30 days?: No Contact w/someone who lives/traveled outside US past 30 days?: No Exposure to someone with infectious disease in past 14 days?: No Do you have a fever (greater than 100.4 F or 38 C)?: No Have you tested positive for COVID-19: No Exposed to someone with COVID-19 in past 14 days?: No Do you have a sore throat?: No Do you have a cough?: No Do you have any weakness?: No Are you experiencing any nausea/vomitting?: Yes Do you have any diarrhea?: No Are you experiencing any unusual bleeding?: No Do you have any muscle aches/pain?: No Do you have any abdominal pain?: No Are you experiencing loss of taste or smell?: No Meds Home Medications and Allergies Home Medications ?Medication ?Instructions ?Recorded ?Confirmed ?Type No Known Home Medications 08/29/24 08/29/24 History New Prescriptions to Start Prescriptions: Allergies Allergy/AdvReac Type Severity Reaction Status Date / Time buspirone (From BuSpar) Allergy Rash Verified 08/29/24 13:14 hydrocodone Allergy Vomiting Verified 08/29/24 13:14 Exam (Inpt) Vital signs and Labs for Last 24 Hours: Temp Pulse Resp BP Pulse Ox O2 Del Method 98.0 F 67 18 115/78 98 Room Air 09/01/24 08:00 09/01/24 10:06 09/01/24 08:00 09/01/24 10:06 09/01/24 10:06 09/01/24 13:00 Laboratory Results - last 24 hr 09/01/24 06:38: WBC 21.4 H* D, RBC 4.43 L, Hgb 12.9 L D, Hct 37.8 L, MCV 85.3, MCH 28.9, MCHC 33.9, RDW 13.8, Plt Count 178, MPV 11.4 H, Neut % (Auto) 18.6 L, Lymph % (Auto) 77.0 H, [place] % (Auto) 3.0, Eos % (Auto) 0.9, Baso % (Auto) 0.4, Neut # (Auto) 4.0, Lymph # (Auto) 16.4 H, [place] # (Auto) 0.6, Eos # (Auto) 0.2, Baso # (Auto) 0.1, Total Counted 100, Neutrophils % (Manual) 18 L, Lymphocytes % (Manual) 81 H, Monocytes % (Manual) 1 L, Platelet Estimate Normal, RBC Morphology Normal, Sodium 131 L, Potassium 4.1, Chloride 102, Carbon Dioxide 23, Anion Gap 10.1, BUN 26 H, Creatinine 1.30 H, Estimated Creat Clear 43, Estimated GFR 56 L, Est GFR ( Amer) 68, Glucose 85 D, Hemoglobin A1c 5.7, Calcium 8.3 L, Magnesium 2.0 D, Total Bilirubin 0.7, AST 33 D, ALT 26 D, Alkaline Phosphatase 62, Total Protein 5.6 L, Albumin 2.8 L D, Globulin 2.8, Albumin/Globulin Ratio 1.0 L I & O for Labs for Last 24 Hours: Intake & Output 08/30/24 08/31/24 09/01/24 09/02/24 11:59 11:59 11:59 11:59 Intake Total 1358 2126 1455 Output Total 0 0 Balance 1358 2126 1455 Weight 48.716 kg 48.217 kg 49.895 kg Microbiology Reports for the Last 24 Hours: Microbiology 08/29/24 13:00 Blood Blood Culture - Preliminary NO GROWTH AFTER 48 HOURS 08/29/24 12:55 Blood Blood Culture - Preliminary NO GROWTH AFTER 48 HOURS Constitutional: cachectic Head: Present normocephalic and atraumatic Respiratory: Present CTA bilaterally Cardiac: Present Reg Rate and Rhythm GI: Present soft, tenderness (Mild epigastric TTP) and normal bowel sounds Extremities: Present full ROM Results Labs 09/01/24 06:38 09/01/24 06:38 Labs: Laboratory Results - last 24 hr 09/01/24 06:38: WBC 21.4 H* D, RBC 4.43 L, Hgb 12.9 L D, Hct 37.8 L, MCV 85.3, MCH 28.9, MCHC 33.9, RDW 13.8, Plt Count 178, MPV 11.4 H, Neut % (Auto) 18.6 L, Lymph % (Auto) 77.0 H, [place] % (Auto) 3.0, Eos % (Auto) 0.9, Baso % (Auto) 0.4, Neut # (Auto) 4.0, Lymph # (Auto) 16.4 H, [place] # (Auto) 0.6, Eos # (Auto) 0.2, Baso # (Auto) 0.1, Total Counted 100, Neutrophils % (Manual) 18 L, Lymphocytes % (Manual) 81 H, Monocytes % (Manual) 1 L, Platelet Estimate Normal, RBC Morphology Normal, Sodium 131 L, Potassium 4.1, Chloride 102, Carbon Dioxide 23, Anion Gap 10.1, BUN 26 H, Creatinine 1.30 H, Estimated Creat Clear 43, Estimated GFR 56 L, Est GFR ( Amer) 68, Glucose 85 D, Hemoglobin A1c 5.7, Calcium 8.3 L, Magnesium 2.0 D, Total Bilirubin 0.7, AST 33 D, ALT 26 D, Alkaline Phosphatase 62, Total Protein 5.6 L, Albumin 2.8 L D, Globulin 2.8, Albumin/Globulin Ratio 1.0 L Assessment and Plan *Assessment and plan (1) Elevated lipase: Status: Acute Category: Medical Code(s): R74.8 - Abnormal levels of other serum enzymes (2) Abdominal pain, acute, epigastric: Status: Acute Category: Medical Code(s): R10.13 - Epigastric pain (3) Homelessness: Status: Acute Category: Social Hx Code(s): Z59.00 - Homelessness unspecified (4) Abnormal CT of the abdomen: Status: Acute Category: Medical Code(s): R93.5 - Abnormal findings on diagnostic imaging of other abdominal regions, including retroperitoneum Plan 1. Epigastric pain/abnormal CT/elevated lipase/homelessness Persistent recurrent epigastric pain proximal gastric wall thickening noted on CT scan, lipase elevated 421 but no findings of gallstones, gallbladder wall thickening, CBD dilation or pancreatitis noted on any imaging. Lipase is still below 2-3 times the upper limit of normal. He is not an alcoholic but he does smoke half a pack of cigarettes a day and uses heroin regularly. Does not appear to be an acute pancreatitis episode but given his epigastric pain and the gastric wall thickening, I would recommend EGD. It appears he initially told the ER that he was diagnosed with stomach cancer at 1 point but never followed up but today reports that he has never been diagnosed with stomach cancer that it was always cancer of the lymph nodes. The EGD could likely be done as an outpatient, but given that he is homeless and has a history of avoiding healthcare, I think he would benefit from having the EGD done while he is inpatient. Dr. Cox returns tomorrow and will discuss in the morning. 2. Hepatitis C antibody positive Awaiting RNA testing follow-up. He has had normal liver enzymes but for slight elevation of AST at 61. HIV was negative. Further depending on clinical course.
[2024-09-01] MEDS: ONDANSETRON 4MG/2ML VIAL 4 MG IV (14:27)
--- NOTE | 2024-09-01 14:57 | DIET.NUTRFU ---
RD saw patient to review weight hx and nutritional status, he triggers for SPCM. Patient is tolerated low fat diet, c/o some nausea at time of visit. He has good meal intake at 75-100% of meals, also he reports he is drinking the boost. Meal intake at home is not as good, he is homeless, stays at his brothers at times. He reports he has lost 20# over the past couple months. He is unable to buy supplements. early childhood worker and provider working on discharge plan, possible hospice secondary to cancer. GI consulted for abdominal pain. Denied any chewing /swallowing issues. Taking zofran for nausea, also on miralax, carafate, LR's, protonix, creon and tums. Upon interview patient had no other concerns.
[2024-09-01 16:00] VITALS: BP 156/89; PULSE 57; RESP 20; TEMP 36.9; O2SAT 100
--- NOTE | 2024-09-01 17:36 | PEERSUPPORT ---
Peer Support Note Patient Information Patient Information: DOS: 09/01/2024 Reason: OUD Ps Consult Ps met with pt, shared briefly personal experience and alternative options through recovery services offered and treatment to help. Pt stated he has been to [facility], then had health complications that detered him then he never returned. Pt tearful when discussing cancer diagnoses, and pain that his grandchildren will feel without their dad and grandpa. Ps encouraging pt through awareness to processing emotions and thoughts to form a plan of care with treatment team. Ps encourages pt to verbalize his needs and wants such as food and drinks to nurses. Pt receptive and agreeing to follow ups with ps during his stay, expressing thanks for support shown. Ps will follow up on 09/02/2024 @ 11:00am.
--- NOTE | 2024-09-01 17:41 | PC.NURSE ---
Patient is A&Ox4. Vital signs stable tolerating room air. IV abx and fluids infusing per MAR. Pt complains of abdominal pain/bloating and nausea. Treated per MAR. Pt had a BM today. Pt lying comfortably supine in bed at this time. No further needs voiced at this time. Call light within reach.
[2024-09-01] MEDS: PROMETHAZINE HCL 25MG/ML 1ML VIAL 25 MG IV (17:45)
[2024-09-01] MEDS: SODIUM CHLORIDE 0.9% 25ML BAG 25 ML IV (17:45)
[2024-09-01 20:00] VITALS: BP 157/103; PULSE 62; RESP 18; TEMP 36.9; O2SAT 99
[2024-09-01] MEDS: ROPINIROLE HCL 0.25 MG TABLET 0.5 MG PO (20:02)
--- NOTE | 2024-09-01 21:54 | EXP.PN ---
Subjective *Date: 09/01/24 *Time: 21:54 Interval history: Patient continues to have epigastric pain. GI consulted, considering EGD in the morning. N.p.o. at midnight. Patient wants to pursue hospice care at this time for right renal cancer. Exam Data for Last 24 hours Vital signs and Labs for Last 24 Hours: Temp Pulse Resp BP Pulse Ox O2 Del Method 98.5 F 62 18 157/103 H 99 Room Air 09/01/24 20:00 09/01/24 20:00 09/01/24 20:00 09/01/24 20:00 09/01/24 20:00 09/01/24 21:00 Laboratory Results - last 24 hr 09/01/24 06:38: WBC 21.4 H* D, RBC 4.43 L, Hgb 12.9 L D, Hct 37.8 L, MCV 85.3, MCH 28.9, MCHC 33.9, RDW 13.8, Plt Count 178, MPV 11.4 H, Neut % (Auto) 18.6 L, Lymph % (Auto) 77.0 H, [place] % (Auto) 3.0, Eos % (Auto) 0.9, Baso % (Auto) 0.4, Neut # (Auto) 4.0, Lymph # (Auto) 16.4 H, [place] # (Auto) 0.6, Eos # (Auto) 0.2, Baso # (Auto) 0.1, Total Counted 100, Neutrophils % (Manual) 18 L, Lymphocytes % (Manual) 81 H, Monocytes % (Manual) 1 L, Platelet Estimate Normal, RBC Morphology Normal, Sodium 131 L, Potassium 4.1, Chloride 102, Carbon Dioxide 23, Anion Gap 10.1, BUN 26 H, Creatinine 1.30 H, Estimated Creat Clear 43, Estimated GFR 56 L, Est GFR ( Amer) 68, Glucose 85 D, Hemoglobin A1c 5.7, Calcium 8.3 L, Magnesium 2.0 D, Total Bilirubin 0.7, AST 33 D, ALT 26 D, Alkaline Phosphatase 62, Total Protein 5.6 L, Albumin 2.8 L D, Globulin 2.8, Albumin/Globulin Ratio 1.0 L I & O for Last 24 hours: Intake & Output 08/29/24 08/30/24 08/31/24 09/01/24 23:59 23:59 23:59 23:59 Intake Total 3004 / 3244 1200 / 1695 1455 / 1455 Output Total 0 / 0 0 / 0 0 / 0 Balance 3004 / 3244 1200 / 1695 1455 / 1455 Weight 50.859 kg 48.716 kg 48.217 kg 49.895 kg Constitutional Constitutional: no acute distress and cachectic *Routine HEENT Exam Head: Present normocephalic Eye: Present EOMI and PERRL ENT: Present mucous membranes moist *Routine Neck Exam Neck: Present supple; Absent lymphadenopathy *Routine Respiratory Exam Respiratory: Present CTA bilaterally *Routine Cardiovascular Exam Cardiovascular: Present RRR *Routine Abdominal Exam Abdominal: Present soft, normoactive bowel sounds and tenderness Comments: Moderate epigastric tenderness to palpation. No peritoneal signs. *Routine Extremities Exam Extremities: Absent cyanosis, clubbing or edema *Routine Skin Exam Skin: Present warm; Absent rash *Routine Neurological Exam Neurological: Present alert and oriented X3 Assessment and Plan *Assessment and plan (1) Cachexia: Status: Acute Category: Medical Code(s): R64 - Cachexia (2) Leukocytosis: Status: Acute Qualifiers: Leukocytosis type: lymphocytosis Qualified Code(s): D72.820 - Lymphocytosis (symptomatic) Category: Medical Code(s): D72.829 - Elevated white blood cell count, unspecified (3) Elevated lipase: Status: Acute Category: Medical Code(s): R74.8 - Abnormal levels of other serum enzymes (4) Abdominal pain, acute, epigastric: Status: Acute Category: Medical Code(s): R10.13 - Epigastric pain Plan Tal Brush is a 59-year-old male who presented with acute on chronic abdominal pain and was admitted for the same. #Epigastric abdominal pain #Acute pancreatitis #Suspected PUD #Enteritis ? Patient states he has had on and off epigastric pain for more than an year. ? CT abdomen/pelvis suggestive of duodenal ulceration and enteritis, and lipase elevated to 421. Hemoglobin stable at 14.7. LFTs normal. ? Pain may be related to suspected PUD and/or pancreatitis. Continue Dilaudid with improvement in pain symptoms. ? Patient continues to have epigastric pain, GI consulted and considering EGD in the morning. N.p.o. at midnight. ? Started Creon with meals. ? Continue misoprostol 200 mg every 6 hours, continue IV Protonix 40 mg twice daily, sucralfate with meals. ? Continue Zosyn for increased abdominal pain given enteritis, leukocytosis. ? Continue low-fat diet for now. ? Dilaudid as needed for pain control. #Suspected right renal malignancy #Leukocytosis, suspected malignancy #Severe protein calorie malnutrition #Cachexia BMI 15 ? Leukocytosis improved to 21.4, predominantly lymphocytic. No fevers, vital signs stable. Suspect for malignancy. No signs of active infection at this time. ? CT abdomen/pelvis revealed 13 x 12 x 12 cm mass in right kidney. Highly suspicious for renal cell carcinoma in this setting. ? Patient was made aware of these suspected diagnosis, became emotional but understood. He states he has supportive family. Patient would like to talk to hospice care nurse. ? Follow-up peripheral smear. Full code DVT prophylaxis: Lovenox 30 mg
[2024-09-02] VITALS (14 sets, daily range): BP systolic 119–174; BP diastolic 68–108; PULSE 48–73; RESP 13–18; TEMP 36.6–37.3; O2SAT 97–100; BMI 15.7
[2024-09-02] MEDS: miSOPROStoL 200 MCG TABLET PO ×4 (01:19→18:29)
[2024-09-02] MEDS: HYDROMORPHONE 2MG/ML SYRINGE 1 MG IV ×4 (01:19→18:34)
--- NOTE | 2024-09-02 05:07 | PC.NURSE ---
Pt A&OX4 and has tolerated room air. Lung sounds clear and bowel sounds active. He has complained of abdominal pain multiple times and was medicated per MAR. He has remained NPO since midnight. Receiving IV abx. No complaints at this time, call light within reach.
[2024-09-02] MEDS: LIPASE/PROTEASE/AMYLASE 1 EACH CAPSULE.DR 2 EACH PO ×3 (05:40→16:37)
[2024-09-02] MEDS: PIPERCILLIN/TAZO 3.375 GM in 0.9 % SODIUM CHLORIDE 50 ML IV ×3 (05:40→16:37)
[2024-09-02] MEDS: SUCRALFATE 1GM TABLET 1 GM PO ×3 (05:40→16:37)
[2024-09-02] MEDS: LACTATED RINGERS 1000ML 1,000 ML 75 ML IV (05:40)
[2024-09-02 06:29] LABS: Basophils # 0.1 K/mm3 (0-0.2); Basophils % 0.3 % (0.1-2.0); Chloride 101 mmol/L (98-107); Eosinophils # 0.2 Kmm3 (0.0-0.4); Eosinophils % 0.9 % (0.1-12.0); Hematocrit 38.9 % (42.0-52.0); Hemoglobin 13.3 g/dL (14.1-18.0); Lymphocytes # 18.7 K/mm3 (0.7-4.5); Mean Corpuscular HGB Conc 34.2 g/dL (31.8-35.4); Mean Corpuscular Hemoglobin 28.6 pg (27.0-31.2); Mean Corpuscular Volume 83.7 fl (80-94); Mean Platelet Volume 11.2 fl (7.4-10.4); Monocytes # 0.7 K/mm3 (0.1-1.0); Monocytes % 2.8 % (1.7-9.3); Neutrophils # 5.5 K/mm3 (1.8-7.8); Neutrophils % 21.8 % (37.0-80.0); Nucleated Red Blood Cells # 0.02 10^3/uL; Nucleated Red Blood Cells % 0.1 %; Platelet Count 170 K/mm3 (142-424); Red Blood Count 4.65 M/mm3 (4.60-6.20); Red Cell Distribution Width 13.3 % (11.5-17.5); Red Cell Distribution Width-SD 40.8 fL; White Blood Count 25.2 K/mm3 (4.8-10.8)
[2024-09-02 06:30] LABS: Albumin Level 3.2 g/dl (3.5-5.0); Potassium 3.5 mmoL/L (3.5-5.1); Sodium 130 mmol/L (136-145)
[2024-09-02 06:32] LABS: Alanine Aminotransferase 28 U/L (12-78); Anion Gap 5.5 mEq/L (5-15); Aspartate Amino Transferase 34 U/L (17-59); Blood Urea Nitrogen 21 mg/dl (9-20); Carbon Dioxide 27 mmol/L (22.0-30.0); Creatinine Clearance Estimated 43 mL/min (50-200); Estimated Glomerular Filt Rate 56 ml/min (>60); GFR (African American) 68 ML/MIN (>60)
[2024-09-02 06:33] LABS: Albumin/Globulin Ratio 1.1 (1.1-1.8); Alkaline Phosphatase 67 U/L (38-126); Bilirubin,Total 0.7 mg/dl (0.2-1.3); Calcium 8.5 mg/dl (8.4-10.2); Globulin 2.8 g/dL (1.3-3.2); Glucose 109 mg/dl (74-100)
[2024-09-02 06:37] LABS: MANUAL DIFFERENTIAL MANUAL DIFFERENTIAL (MANUAL DIFF)
[2024-09-02 07:19] LABS: Magnesium 1.6 mg/dl (1.6-2.3)
[2024-09-02 08:26] LABS: Eosinophils % 2 % (0-3); Lymphocytes % 72 % (10-50); Monocytes % 3 % (2-9); Neutrophils % 22 % (42-76); Total Cells Counted 100
[2024-09-02 08:27] LABS: Platelet Estimate Normal; RBC Morphology Normal
[2024-09-02] MEDS: PANTOPRAZOLE 40MG VIAL 40 MG IV (08:33)
[2024-09-02] MEDS: LISINOPRIL 5MG TABLET 5 MG PO (08:34)
--- NOTE | 2024-09-02 09:27 | SW/DCPLANNER ---
Addendum entered by Lita Spear 09/03/24 07:34: I will update Pari w/ Hospice that patient discharged home and would like to continue w/ Oncology follow up. Addendum entered by Lita Spear 09/02/24 15:15: Patient has requested additional time to speak w/ MD and family prior to making a decision regarding Hospice. I will follow up w/ patient in the AM. Addendum entered by Lita Spear 09/02/24 13:48: Pari w/ Hospice will be at bedside to evaluate patient. Original Note: I spoke w/ this patient regarding plans once medically stable for discharge. Patient has expressed an interest in Hospice services and would like to speak w/ [facility]. Patient stated that he is able to ambulate to the bathroom independently and resides at home w/ his brothers. Patient expressed an [facility] in [facility] as well. Patient information will be faxed to [facility]osp[facility] and [facility] this AM. Discharge date is unknown at this time. I will continue to follow up.
[2024-09-02] MEDS: POTASSIUM CHLORIDE 20MEQ TAB 40 MEQ PO ×2 (09:51→12:56)
[2024-09-02] MEDS: MAGNESIUM SULFATE IN WATER 2 GM/50 ML PIGGYBACK IV ×2 (10:02→13:31)
--- NOTE | 2024-09-02 11:47 | P.PNANES_ITS ---
[facility] Disclaimer: The information contained in this section may have been updated after the patient was seen, as this information can be updated by other users. Family History Other No significant family history Social History Smoking Status: Never smoker alcohol intake: never substance use type: unknown current occupational status: unemployed Travel in the last 8 weeks: None [facility] Anesthesia Checklist Patient Identification Patient Identification: Arm Band and Verbal (Name & ) Structural Data Admitted From: Inpatient Planned Operative Procedure/s: EGD Consent for Planned Operative Procedure(s) Verified: Yes Verified Documents: Surgical Consent and History and Physical NPO Status Verified Time NPO: 00:00 Additional verifications Anesthesia Reactions: No Airway Assessment Mallampati Score:: Class I Dentition: Edentulous Neurological Assessment Level of Consciousness: Awake, Alert and Appropriate Hx Seizures: No Anesthesia Plan Anesthesia Risk discussed: Yes Anesthesia Plan: Verified ASA Class: II Anesthesia Type: MAC
--- NOTE | 2024-09-02 12:19 | P.HP_ITS ---
History of Present Illness *Admission Date: 08/29/24 *Reason for visit:: Epigastric abdominal pain, nausea and weight loss *History of present illness: Mr. Anguiano is a 59-year-old gentleman who is here for diagnostic EGD. He has had epigastric abdominal pain and weight loss. His CAT scan showed gastric wall thickening and elevated lipase. He had the diagnosis of cancer in his lymph nodes. The examination is deemed medically necessary for diagnostic EGD. The patient has been seen, interviewed and examined prior to the procedure by both myself and the anesthesia provider. [facility] Disclaimer: The information contained in this section may have been updated after the patient was seen, as this information can be updated by other users. Family History Other No significant family history Social History (Updated 09/02/24 @ 11:48 by Crystal Hughes CRNA) Smoking Status: Never smoker alcohol intake: never substance use type: unknown current occupational status: unemployed Travel in the last 8 weeks: None Have you lived/traveled outside US in past 30 days?: No Contact w/someone who lives/traveled outside US past 30 days?: No Exposure to someone with infectious disease in past 14 days?: No Do you have a fever (greater than 100.4 F or 38 C)?: No Have you tested positive for COVID-19: No Exposed to someone with COVID-19 in past 14 days?: No Do you have a sore throat?: No Do you have a cough?: No Do you have any weakness?: No Are you experiencing any nausea/vomitting?: Yes Do you have any diarrhea?: No Are you experiencing any unusual bleeding?: No Do you have any muscle aches/pain?: No Do you have any abdominal pain?: No Are you experiencing loss of taste or smell?: No Other Medical History Have you received the Flu Vaccine for this season: No Have you received the Pneumonia Vaccine: No Review of Systems Review of Systems Review of systems (narrative): Negative *Cardiovascular Comments: Negative *Gastrointestinal Comments: Negative *Genitourinary Comments: Negative *Musculoskeletal Comments: Negative *Neurologic Comments: Negative Meds Home Medications and Allergies Home Medications ?Medication ?Instructions ?Recorded ?Confirmed ?Type No Known Home Medications 08/29/24 08/29/24 History New Prescriptions to Start Prescriptions: Allergies Allergy/AdvReac Type Severity Reaction Status Date / Time buspirone (From BuSpar) Allergy Rash Verified 08/29/24 13:14 hydrocodone Allergy Vomiting Verified 08/29/24 13:14 Exam Data for Last 24 hours Vital signs and Labs for Last 24 Hours: Temp Pulse Resp BP Pulse Ox O2 Del Method 98.8 F 69 17 168/99 H 99 Room Air 09/02/24 08:14 09/02/24 08:14 09/02/24 08:14 09/02/24 08:14 09/02/24 08:14 09/02/24 09:00 Laboratory Results - last 24 hr 09/02/24 06:01: WBC 25.2 H*, RBC 4.65, Hgb 13.3 L, Hct 38.9 L, MCV 83.7, MCH 28.6, MCHC 34.2, RDW 13.3, Plt Count 170, MPV 11.2 H, Neut % (Auto) 21.8 L, Lymph % (Auto) 74.0 H, [place] % (Auto) 2.8, Eos % (Auto) 0.9, Baso % (Auto) 0.3, Neut # (Auto) 5.5, Lymph # (Auto) 18.7 H, [place] # (Auto) 0.7, Eos # (Auto) 0.2, Baso # (Auto) 0.1, Total Counted 100, Neutrophils % (Manual) 22 L, Lymphocytes % (Manual) 72 H, Atypical Lymphs % 1.0, Monocytes % (Manual) 3, Eosinophils % (Manual) 2, Platelet Estimate Normal, RBC Morphology Normal, Sodium 130 L, Potassium 3.5, Chloride 101, Carbon Dioxide 27, Anion Gap 5.5, BUN 21 H, Creatinine 1.30 H, Estimated Creat Clear 43, Estimated GFR 56 L, Est GFR ( Amer) 68, Glucose 109 H D, Calcium 8.5, Magnesium 1.6 D, Total Bilirubin 0.7, AST 34, ALT 28, Alkaline Phosphatase 67, Total Protein 6.0 L, Albumin 3.2 L D, Globulin 2.8, Albumin/Globulin Ratio 1.1 I & O for Last 24 hours: Intake & Output 08/30/24 08/31/24 09/01/24 09/02/24 23:59 23:59 23:59 23:59 Intake Total 3004 / 3244 1200 / 1695 1454 550 / 550 Output Total 0 / 0 0 / 0 0 / 0 0 / 0 Balance 3004 / 3244 1200 / 1695 1454 / 2004 550 / 550 Weight 107 lb 6.4 oz 106 lb 4.805 oz 110 lb 109 lb 15.994 oz *Routine HEENT Exam Head: Present normocephalic Eye: Present EOMI and PERRL ENT: Present mucous membranes moist *Routine Neck Exam Neck: Present supple *Routine Respiratory Exam Respiratory: Present CTA bilaterally *Routine Cardiovascular Exam Cardiovascular: Present RRR *Routine Abdominal Exam Abdominal: Present soft and normoactive bowel sounds; Absent tenderness *Routine Rectal Exam Rectal:: deferred *Routine Genitalia Exam Genitalia:: deferred *Routine Extremities Exam Extremities: Absent cyanosis, clubbing or edema *Routine Skin Exam Skin: Present warm; Absent rash *Routine Neurological Exam Neurological: Present alert and oriented X3 Assessment and Plan *Assessment and plan (1) Abnormal CT of the abdomen: Status: Acute Category: Medical Code(s): R93.5 - Abnormal findings on diagnostic imaging of other abdominal regions, including retroperitoneum (2) Abdominal pain, acute, epigastric: Status: Acute Category: Medical Code(s): R10.13 - Epigastric pain (3) Gastric wall thickening: Status: Acute Category: Medical Code(s): K31.89 - Other diseases of stomach and duodenum (4) Elevated lipase: Status: Acute Category: Medical Code(s): R74.8 - Abnormal levels of other serum enzymes (5) Nausea: Status: Acute Category: Medical Code(s): R11.0 - Nausea (6) H/O lymph node cancer: Status: Acute Category: Medical Code(s): Z85.89 - Personal history of malignant neoplasm of other organs and systems Plan A/P: 1. Acute epigastric abdominal pain with CAT scan showing gastric wall thickening is the preprocedural diagnosis. The patient has had nausea and weight loss. He also had a diagnosis of lymph node malignancy. The patient will be anesthetized/sedated using MAC sedation. The patient has been seen and examined. Cardiac and lung assessment prior to the examination is stable. Proceed with planned EGD.
--- NOTE | 2024-09-02 12:22 | P.PCN_ITS ---
[facility] Procedure Note Date: 09/02/24 Time: 12:28 Procedure Note:: Upper Endoscopy Procedure Report: Esophagogastroduodenoscopy with cold biopsies Endoscopost: Rodolfo Cox II, MD Referring Physician: Wilton Watson MD Date of Procedure: September 02, 2024 Equipment: Olympus GIF 190 standard upper endoscope Sedation: MAC sedation Indications: Mr. Anguiano is a 59-year-old gentleman who is hospitalized with acute epigastric abdominal pain. His CAT scan showed thickening of the gastric wall. 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 He has had nausea and a 15 pound weight loss over the last several months. Procedure: Prior to the procedure, a history and physical exam was performed, and patient's medications and allergies were reviewed. The risks, benefits and alternatives of the sedation and procedure were discussed with the patient. All questions were answered and informed consent was obtained. The patient was brought to the procedure room. Patient identification and proposed procedure were verified by the physician and the nurse. The patient was placed in a left lateral decubitus position and the scope was passed under direct vision. Throughout the procedure, the patient's blood pressure, pulse, and oxygen saturations were monitored continuously. The upper GI endoscopy was accomplished without difficulty. The patient tolerated the procedure well. Findings: The scope was passed directly into the upper esophagus and advanced to the third portion of the duodenum. The post bulbar duodenum, ampulla and duodenal bulb were normal with normal mucosa and conniventes. The scope was withdrawn through a normal duodenal bulb and pylorus into the stomach. There was moderate bile reflux with moderate linear reactive gastropathy of the antrum and body of the stomach. Biopsies were obtained from the antrum. Upon retroflexion there was a 2 cm hiatal hernia. The proximal stomach was normal in appearance and there was no significant mucosal abnormalities. The scope was then withdrawn into the esophagus. There was no evidence of reflux esophagitis or Abraham's. There was no evidence of esophageal varices and no signs of portal hypertension. The remainder of the esophageal mucosa was normal. Impression: 1. Bile reflux with moderate linear reactive gastropathy of antrum/body of stomach Plan: I will follow-up the biopsies. The findings today are benign. The patient does have the 13 x 13 mm right kidney lesion suspicious for malignancy. Patient will need referral to urology. He also had what appeared to be enteritis recently. He does have the hepatitis C antibody positive and recommend getting the HCVRNA levels. For his digestive issues, would consider adding sucralfate and [id number] herbal Iberogast.
--- NOTE | 2024-09-02 15:22 | CA_ITS ---
FINAL REPORT TECHNIQUE: Multiple transverse and longitudinal images were performed of right the femoral-popliteal deep venous system with augmentation and compression maneuvers. CLINICAL HISTORY: abn ct scan FINDINGS: Right lower extremity duplex ultrasound demonstrates normal flow in the deep venous system. There is no abnormal echogenicity to suggest thrombus. There is normal compression and augmentation. IMPRESSION: No evidence of right DVT. Reviewed, Interpreted and Dictated by Jack Melendez MD Transcribed by Reina De La Garza Authenticated and . [facility]
--- NOTE | 2024-09-02 15:56 | PEERSUPPORT ---
Peer Support Note Patient Information Patient Information: DOS: 09/02/2024 Reason: OUD Ps Consult ? Drug(s) of Choice: heroin (snorting) ? Use Hx: Started using after he was 34 progressed following sons and health issues with pain in stomach.? ? Previous MAT/MOUD: None ? Current MAT/MOUD: None ? Previous Treatment: [facility]: did not complete due to health issues ? Longest Length of Sobriety: never used any drugs before 34 years old ? Support System: Brothers ? Legal Issues: None ? Potential Barriers: -Unsecured housing -Limitation on inpatient treatment with diagnosis/medication for pain. -Lack of connection and support -No cell phone for communicating ? Harm reduction: -Connection to [facility] recovery focused support -Education of opiate use disorder -Treatment referrals and resources ? Motivation for Change: Pt is processing his cancer diagnosis, he reflects on his life and his strength of hanny being taught to him by his parents, then to his child who and now his grandchildren finding comfort. He stated he wished he had came to the doctor sooner, that he knew something was wrong. He is agreeing and understanding that mental and behavioral health would be helpful to him during this challenging time in his life. Stated his brother would allow him to stay with [place] but would need to talk to him as it has been weeks since he spoke to him. ? Ps offers to or have care management facilitate a phone call with pt to brother to have conversation necessary for his health and plan of action. ? Pt stated he has no income, has been denied disability three times. He is interested in reapplying, but feels as if they just didn?t want to help him before. ? Ps and pt discuss options as well as discuss care management plan while at admitted at hospital. ? Plan of Action: -Ps to follow up with pt for support on 09/03/2024.
--- NOTE | 2024-09-02 16:28 | P.DS_ITS ---
General Admission date:: 08/29/24 HPI HPI HPI: Mr. nAguiano is a 59-year-old gentleman who is here for diagnostic EGD. He has had epigastric abdominal pain and weight loss. His CAT scan showed gastric wall thickening and elevated lipase. He had the diagnosis of cancer in his lymph nodes. The examination is deemed medically necessary for diagnostic EGD. The patient has been seen, interviewed and examined prior to the procedure by both myself and the anesthesia provider. Hospital Course Hospital Course Hospital Course: aTl Anguiano is a 59-year-old male who presented with acute on chronic abdominal pain and was admitted for the same. #Epigastric abdominal pain #Possible opioid-induced constipation #Substance use disorder, heroin ? Patient states he has had on and off epigastric pain for more than an year. ? CT abdomen/pelvis suggestive of duodenal ulceration and enteritis, and lipase elevated to 421. Hemoglobin stable at 14.7. LFTs normal. ? Epigastric pain did not significantly improve with Protonix, Carafate, misoprostol, Creon. No suggestion of chronic pancreatitis. ? Also treated with Zosyn for possible underlying enteritis causing abdominal pain. ? GI consulted, s/p EGD on 09/02/2024 which only revealed reactive gastropathy with bile reflux. Recommended continuing Carafate. ? Patient does have suspected right renal malignancy which may be contributing. Referred to urology and oncology. ? I do suspect that there is some opioid-induced constipation as patient has been on and off heroin user, will discharge with Linzess. ? Discharged with Percocet 5 mg, Protonix 40 mg, Linzess 145 mcg, Carafate, MiraLAX. #Suspected right renal malignancy #Mature lymphoproliferative disorder #Suspected right inguinal lymphadenopathy #Severe protein calorie malnutrition #Cachexia BMI 15 ? Leukocytosis in 20s and 30s predominantly lymphocytic. No fevers, vital signs stable. High suspicion for malignancy. No signs of active infection at this time. ? CT abdomen/pelvis revealed 13 x 12 x 12 cm mass in right kidney, hypodense lesion in right groin. Highly suspicious for renal cell carcinoma in this setting. ? Peripheral smear also shows mature lymphoproliferative disorder, will follow- up with flow cytometry. ? Patient was made aware of these suspected diagnosis, became emotional but understood. He states he has supportive family. Initially considered hospice, but wants to have further evaluation and possible treatment. ? Follow-up flow cytometry which will result in 2 to 3 days, will follow-up with oncology. ? Has appointment with oncology tomorrow 09/03/2024, and urology on 09/08/2024. Total time spent on discharge: 35 minutes on chart review, counseling, documentation, and direct care with patient. Exam Data for Last 24 hours Vital signs and Labs for Last 24 Hours: Temp Pulse Resp BP Pulse Ox O2 Del Method O2 Flow Rate 98.4 F 68 16 147/68 H 100 Room Air 5 09/02/24 16:00 09/02/24 16:00 09/02/24 16:00 09/02/24 16:00 09/02/24 16:00 09/02/24 16:00 09/02/24 12:18 Laboratory Results - last 24 hr 09/02/24 06:01: WBC 25.2 H*, RBC 4.65, Hgb 13.3 L, Hct 38.9 L, MCV 83.7, MCH 28.6, MCHC 34.2, RDW 13.3, Plt Count 170, MPV 11.2 H, Neut % (Auto) 21.8 L, Lymph % (Auto) 74.0 H, [place] % (Auto) 2.8, Eos % (Auto) 0.9, Baso % (Auto) 0.3, Neut # (Auto) 5.5, Lymph # (Auto) 18.7 H, [place] # (Auto) 0.7, Eos # (Auto) 0.2, Baso # (Auto) 0.1, Total Counted 100, Neutrophils % (Manual) 22 L, Lymphocytes % (Manual) 72 H, Atypical Lymphs % 1.0, Monocytes % (Manual) 3, Eosinophils % (Manual) 2, Platelet Estimate Normal, RBC Morphology Normal, Sodium 130 L, Potassium 3.5, Chloride 101, Carbon Dioxide 27, Anion Gap 5.5, BUN 21 H, Creatinine 1.30 H, Estimated Creat Clear 43, Estimated GFR 56 L, Est GFR ( Amer) 68, Glucose 109 H D, Calcium 8.5, Magnesium 1.6 D, Total Bilirubin 0.7, AST 34, ALT 28, Alkaline Phosphatase 67, Total Protein 6.0 L, Albumin 3.2 L D, Globulin 2.8, Albumin/Globulin Ratio 1.1 I & O for Last 24 hours: Intake & Output 08/30/24 08/31/24 09/01/24 09/02/24 23:59 23:59 23:59 23:59 Intake Total 3004 / 3244 1200 / 1695 1454 550 / 550 Output Total 0 / 0 0 / 0 0 / 0 0 / 0 Balance 3004 / 3244 1200 / 1695 1454 550 / 550 Weight 48.716 kg 48.217 kg 49.895 kg 49.895 kg Microbiology Reports for the Last 24 Hours: Microbiology 08/29/24 13:00 Blood Blood Culture - Preliminary NO GROWTH AFTER 4 DAYS 08/29/24 12:55 Blood Blood Culture - Preliminary NO GROWTH AFTER 4 DAYS Results Data Completed and Pending Labs on day of discharge: Labs from last 24 hours 09/02/24 06:01 WBC 25.2 H* RBC 4.65 Hgb 13.3 L Hct 38.9 L MCV 83.7 MCH 28.6 MCHC 34.2 RDW 13.3 Plt Count 170 MPV 11.2 H Neut % (Auto) 21.8 L Lymph % (Auto) 74.0 H [place] % (Auto) 2.8 Eos % (Auto) 0.9 Baso % (Auto) 0.3 Neut # (Auto) 5.5 Lymph # (Auto) 18.7 H [place] # (Auto) 0.7 Eos # (Auto) 0.2 Baso # (Auto) 0.1 Total Counted 100 Neutrophils % (Manual) 22 L Lymphocytes % (Manual) 72 H Atypical Lymphs % 1.0 Monocytes % (Manual) 3 Eosinophils % (Manual) 2 Platelet Estimate Normal RBC Morphology Normal Sodium 130 L Potassium 3.5 Chloride 101 Carbon Dioxide 27 Anion Gap 5.5 BUN 21 H Creatinine 1.30 H Estimated Creat Clear 43 Estimated GFR 56 L Est GFR ( Amer) 68 Glucose 109 H D Calcium 8.5 Magnesium 1.6 D Total Bilirubin 0.7 AST 34 ALT 28 Alkaline Phosphatase 67 Total Protein 6.0 L Albumin 3.2 L D Globulin 2.8 Albumin/Globulin Ratio 1.1 Preliminary micro results at discharge 08/29/24 13:00 Blood Culture - Preliminary Blood NO GROWTH AFTER 4 DAYS 08/29/24 12:55 Blood Culture - Preliminary Blood NO GROWTH AFTER 4 DAYS DS: Diagnosis Discharge Diagnosis (1) Abnormal CT of the abdomen: Status: Acute Code(s): R93.5 - Abnormal findings on diagnostic imaging of other abdominal regions, including retroperitoneum (2) Abdominal pain, acute, epigastric: Status: Acute Code(s): R10.13 - Epigastric pain (3) Gastric wall thickening: Status: Acute Code(s): K31.89 - Other diseases of stomach and duodenum (4) Elevated lipase: Status: Acute Code(s): R74.8 - Abnormal levels of other serum enzymes (5) Nausea: Status: Acute Code(s): R11.0 - Nausea (6) H/O lymph node cancer: Status: Acute Code(s): Z85.89 - Personal history of malignant neoplasm of other organs and systems (7) Renal mass: Status: Acute Code(s): N28.89 - Other specified disorders of kidney and ureter Meds Home Medications and Allergies Home Medications ?Medication ?Instructions ?Recorded ?Confirmed ?Type linaclotide 145 mcg capsule 145 mcg PO DAILY #14 caps 09/02/24 Rx (Linzess) lisinopril 5 mg tablet 5 mg PO DAILY 30 days #30 tabs 09/02/24 Rx oxycodone-acetaminophen 5 mg-325 1 tab PO Q6H PRN pain 3 days #12 09/02/24 Rx mg tablet (Percocet) tabs pantoprazole 40 mg tablet,delayed 40 mg PO DAILY #30 tabs 09/02/24 Rx release (Protonix) polyethylene glycol 3350 17 gram 17 g PO DAILY 30 days #30 ea 09/02/24 Rx oral powder packet (HealthyLax) sucralfate 1 gram tablet (Carafate) 1 g PO BID #30 tabs 09/02/24 Rx New Prescriptions to Start Prescriptions: linaclotide [Linzess] Sonu Mi lisinopril Sonu Mi oxycodone-acetaminophen [Percocet] Sonu Mi pantoprazole [Protonix] Sonu Mi polyethylene glycol 3350 [HealthyLax] Sonu Mi sucralfate [Carafate] Sonu Mi Allergies Allergy/AdvReac Type Severity Reaction Status Date / Time buspirone (From BuSpar) Allergy Rash Verified 08/29/24 13:14 hydrocodone Allergy Vomiting Verified 08/29/24 13:14 Discharge Plan Disposition Patient Disposition: Home, Self-Care Condition: Fair Discharge Order Discharge Orders: Discharge Order (Routine); Ordered 09/02/24 Ordered By: Sonu Mi Follow up Plan Follow up with: Sonu Salvador MD [Staff Physician] - 09/08/24 9:00 am Yoan Land MD [Staff Physician] - 09/03/24 11:30 am Provider,MD Vibha [Primary Care Provider] - Enter time for follow up Prescriptions/Medication Reconciliation: New polyethylene glycol 3350 [HealthyLax] 17 gram Powder In Packet 17 g PO DAILY 30 Days Qty: 30 0RF lisinopril 5 mg Tablet 5 mg PO DAILY 30 Days Qty: 30 0RF oxycodone-acetaminophen [Percocet] 5-325 mg tablet 1 tab PO Q6H PRN (Reason: pain) 3 Days Qty: 12 0RF Linzess 145 mcg capsule 145 mcg PO DAILY Qty: 14 0RF sucralfate [Carafate] 1 gram tablet 1 g PO BID Qty: 30 0RF pantoprazole [Protonix] 40 mg tablet,delayed release (DR/EC) 40 mg PO DAILY Qty: 30 0RF Problem Reconciliation Problems Reviewed?: Yes Patient Discharge Instructions Patient Instructions: DI for Abdominal Pain-Adult, DI for Leukocytosis Print Language: Hungarian Providers Primary Care Provider: Provider,Referral Admit Provider: Wilton Watson Attending Provider: Wilton Watson
[2024-09-02] MEDS: MILK OF MAGNESIA 30ML UDC 30 ML PO (16:37)
[2024-09-02] MEDS: ONDANSETRON 4MG/2ML VIAL 4 MG IV (16:41)
--- NOTE | 2024-09-02 17:39 | PC.NURSE ---
Pt is A&Ox4. Vital signs stable tolerating room air. IV abx and fluids infusing per JUL. Potassium and magnesium replaced per protocol. EGD and doppler completed today. Pt complains of abdominal pain and nausea. Treated with medications per JUL. Plan is for d/c today. No further complaints voiced at this time. Pt is lying supine comfortably in bed. Call light within reach.
--- NOTE | 2024-09-02 17:40 | PC.NURSE ---
attempted to contact pt's brother shekhar numerous times in regards to discharge transport. message left. pt states that he has no other family or friends to contact.
--- NOTE | 2024-09-02 21:00 | PC.NURSE ---
Patient left floor with staff for home at 20:58.
--- NOTE | 2024-09-02 21:03 | PC.NURSE ---
v/s, ox4. Pt ready for safe discharge per provider.
--- NOTE | 2024-09-03 10:23 | SW/DCPLANNER ---
The number that is listed for the patient is not valid and there is no other contact number listed. Was not able to do a follow up phone call. Zaki Trevizo
== END 2024-09-02 20:59 | disposition home or self-care (01) | DRG 686 ==
LOC: ER 16:19 → 2ND 18:13
PROVIDERS: Internal Medicine Gastroenterology; Physician Assistant; Student in an Organized Health Care Education/Training Program; Admitting Provider Internal Medicine Adolescent Medicine; Emergency Provider Emergency Medicine; Visit Provider Internal Medicine Adolescent Medicine
PROC: 0DJ08ZZ Inspection of Upper Intestinal Tract, Via Natural or Artificial Opening Endoscopic (ICD-10-PCS; principal; 2024-09-02 12:00)
DX: C64.1 Malignant neoplasm of right kidney, except renal pelvis (principal); E43 Unspecified severe protein-calorie malnutrition; K85.90 Acute pancreatitis without necrosis or infection, unspecified; D47.Z9 Other specified neoplasms of uncertain behavior of lymphoid, hematopoietic and related tissue; R64 Cachexia; Z68.1 Body mass index [BMI] 19.9 or less, adult; Z59.812 Housing instability, housed, homelessness in past 12 months; C77.9 Secondary and unspecified malignant neoplasm of lymph node, unspecified; R10.13 Epigastric pain; Z88.5 Allergy status to narcotic agent; F11.188 Opioid abuse with other opioid-induced disorder; K59.09 Other constipation; Z85.89 Personal history of malignant neoplasm of other organs and systems; K31.89 Other diseases of stomach and duodenum
CPT/HCPCS: 36415; 71275; 74170; 74174; 74177; 76705; 80053; 80061; 81001; 82607; 82728; 82746; 83036; 83540; 83550; 83605; 83690; 83735; 84145; 84439; 84443; 84484; 85007; 85025; 85610; 86803; 87040; 87389; 87522; 87636; 93005; 93971; 99291; G0378; J0131; J1171; J1650; J2270; J2405; J2543; J2550; J3370; J3475; J7030; J7050; J7120; Q9967

== ENCOUNTER 2024-09-08 09:59 | Outpatient (CLI) | payer MEDICAID, SELFPAY ==
[2024-09-08 11:34] LABS: Blood Urea Nitrogen 26 mg/dl (9-20); Estimated Glomerular Filt Rate 76 ml/min (>60); GFR (African American) 92 ML/MIN (>60)
[2024-09-09 13:12] LABS: PSA, Free 0.35 ng/mL; Prostate Specific Ag 3.2 ng/mL (0.0-4.0)
== END 2024-09-08 23:59 | disposition home or self-care (01) ==
LOC: LAB 10:00
PROVIDERS: Visit Provider Urology
DX: Z12.5 Encounter for screening for malignant neoplasm of prostate (principal); N40.1 Benign prostatic hyperplasia with lower urinary tract symptoms; N28.89 Other specified disorders of kidney and ureter
CPT/HCPCS: 36415; 82565; 84153; 84154; 84520